=== PATIENT | male | born 1960 | race Caucasian/White ===

== ENCOUNTER 2024-07-05 13:08 | Outpatient (REF) | payer MEDICARE, MEDICAID, SELFPAY ==
[2024-07-05 18:20] LABS: Influenza A PCR NEGATIVE (Negative); Influenza B PCR NEGATIVE (Negative); Resp Syncy Virus RNA Qual PCR NEGATIVE (Negative); SARS COV2 PCR INHOUSE NEGATIVE (Negative)
[2024-07-09 18:43] LABS: C. Trachomatis RNA TMA, Throat NOT DETECTED; N. gonorrhoeae RNA TMA, Throat NOT DETECTED
== END 2024-07-05 13:09 | disposition home or self-care (01) ==
LOC: HO.LAB 13:08
PROVIDERS: Physician Assistant; PCP Internal Medicine
DX: J06.9 Acute upper respiratory infection, unspecified (principal); R09.89 Other specified symptoms and signs involving the circulatory and respiratory systems; R07.0 Pain in throat; Z20.2 Contact with and (suspected) exposure to infections with a predominantly sexual mode of transmission
CPT/HCPCS: 0241U; 87070; 87491; 87591; 87880; 99202

== ENCOUNTER 2024-07-05 13:08 | Outpatient (AMB) | payer MEDICARE, MEDICAID, SELFPAY ==
--- NOTE | 2024-07-05 13:11 | AM.OFFWIN_ITS ---
Intake Vital Signs 07/05/24 13:14 Weight 252 lb BP 116/64 Blood Pressure Location Rt brachial Position Sitting Pulse 81 Pulse Source Pulse Oximeter Temp 98.3 F Temp Source Oral Pulse Oximetry (%) 95 Oxygen Delivery Method Room Air Intake Visit Reasons: [employer] Sore throat, cold symptoms Intake Note: Patient here for sore throat and chest congestion that has been present for a couple of days but last night it worsened. Patient Tobacco Use Status: Former Tobacco user Allergies No Known Allergies Allergy (Unverified 07/05/24 13:16) HPI HPI Comments History of Present Illness Details History - The patient is a 64-year-old male pres enting with upper respiratory symptoms, notably a persistent cough producing green sputum for a week and a half. Not ably, the patient experiences worsening at night, severely impacting sleep due to increased coughing episodes. There is no fever, and the wheezing is described as originating from the chest. The patient denies a history of asthma or COPD. Despite using OTC cold formulations, the patient finds limited relief. A smoker history is noted, with cessation occurring decades ago. Orthopedic history includes bilateral shoulder and knee replacements and past ankle fracture, with methadone tapering currently ongoing. Additional symptoms include a toothache and white patches observed in the throat. Physical Exam General: Cooperative, healthy appearing, comfortable and no acute distress Orientation/consciousness: Patient oriented x3 Limitations: No limitations Head: Normal to inspection Ears: Hearing grossly normal bilaterally, external ears normal and TM's normal bilaterally Nose: Normal external nose present, Normal nares present and No nasal discharge present Face and sinus: Normal facial exam and Yes sinuses nontender Mouth: Normal oral and palatal mucosa present and moist mucous membranes Throat: Yes tonsils normal, Yes uvula midline. Posterior oropharynx erythema with a little white patch noted Eyes: Appearance normal, both eyes and all related structures Neck: Normal visual inspection Respiratory: Clear to auscultation bilaterally. Normal respiratory effort, able to speak in complete sentences, Actively coughing, no respiratory distress, not tachypneic, no tripod positioning and no use of accessory muscles Cardiovascular: Regular rate and rhythm. Normal S1 and S2 Skin: No rashes or lesions noted Neuro: Patient oriented x3 Extremities: Normal to inspection and Yes no clubbing, cyanosis or edema PFSH Social History Patient Tobacco Use Status: Former Tobacco user Review of Systems Const All systems reviewed & are unremarkable except as noted in HPI and below Physical Exam Vital Signs: Last Vital Signs Temp 98.3 F 07/05/24 13:14 Pulse 81 07/05/24 13:14 BP 116/64 07/05/24 13:14 Pulse Ox 95 07/05/24 13:14 Oxygen Delivery Method Room Air 07/05/24 13:14 Results AMB Rapid Strep AMB Rapid Strep Negative Last Edit by [email or web address] Faustin on 07/05/24 14:01 Assessment & Plan Assessment & Plan (1) URI, acute: Code(s): J06.9 - Acute upper respiratory infection, unspecified Plan: VSS, pt well appearing and PE remarkable for white patch in right posterior oropharynx. Rapid strep negative x2. Sent throat culture as well as gonorrhea and chlamydia culture. Sent Flu, Covid and RSV testing. Treatment currently focuses on symptomatic relief, with OTC medications, warm salt water rinses. Further treatment is pending test outcomes. If everything is negative and the white patch persists, patient was educated to follow up with an Oral surgeon for further evaluation. Patient was informed and verbally consented to the use of an ambient scribe for clinic note documentation during this visit Orders: Orders AMB Rapid Strep Screen Today Z13.9 - Encounter for screening, unspecified SARS-CoV2/FLU/RSV Today R09.89 - Other specified symptoms and signs involving the circulatory and respiratory systems Coding Level of Care Code New Pt Level 4 (24672) Diagnoses URI, acute J06.9
[2024-07-05 13:14] VITALS: BP 116/64; PULSE 81; TEMP 36.8; O2SAT 95
--- OUTSIDE RECORDS SUMMARY | 2024-07-05 15:59 | XMS_ITS | Data Portability ---
Author Organization [facility], [facility] Address [address] [place] [address] Care Team Providers Care Loans Consultant Name Role Phone PADMINI MOYA Primary Care Provider [phone] [facility] (LAILA MARIN) Orthopedic Surgeon Assessment Encounter Date Assessment Date Assessment LastModified by Organization Details LastModified Time 06/02/2023 06/02/2023 We completed your Medicare Wellness exam today. This was an opportunity to assess your overall well being including your ability to care for yourself, your mobility, memory, mental health, as well as your safety. With advancing age, it is important to assign someone in your life as your Health Care Proxy (HCP). This person should know what is important to you and what your wishes are for medical procedures if you cannot communicate your wishes yourself (severe illness, unconsciousness) . We discussed having a completed Health Care Proxy form today. In addition, today we started a conversation about your End of Life wishes. These conversations will continue over the years. Please consider reading the book, Being Mortal by Parrish Arevalo to help frame future conversations. We discussed the purpose of a MOLST form (Medical Orders for Life Sustaining Treatment) and completed this form if appropriate per your wishes. Vision and Hearing are senses that are critically important as we age. When impaired, they can contribute to memory loss, falls, and make it harder to drive, talk to family and friends, and engage in the world. Please get your vision checked yearly and your hearing checked when you start to notice hearing loss. We discussed approaches to lowering your risk of heart disease and stroke . Your blood pressure . Your cholesterol . We discussed cancer screening you may need as well as vaccines to prevent infections. Colon Cancer : Your risk of colon cancer is . Due for colorectal screening:.. if you are not planning to have a colonoscopy please screen with stool cards yearly. Prostate Cancer : PSA testing for ages 55-69 risks and benefits discussed . Aortic Aneurysm Screening : is indicated if you have a history of smoking and is due once at age 65. Influenza Vaccine : Flu shot yearly. Tetanus Vaccine : Every 10 years. Due: . The following vaccines are available from your pharmacy: Pneumonia Vaccine : PCV20: once after age 65. Shingles Vaccine : 2 shots after age 50. Covid Vaccine : Make sure you have received the most up to date covid vaccine. Your personal health goal for the year is: [email or web address] Not available 06/02/2023 09:04:48 06/23/2024 06/23/2024 We reviewed your chronic medical conditions and updated your plan for management. Please review instructions below. We have discussed your personal goals and discussed how to reach your goals. Please reach out to us via the Portal or phone if you have questions about your chronic conditions or if you or your caregivers require assistance in meeting your goals. Please visit our website [employer] for more patient resources. As part of your care plan, we will help coordinate your ongoing medical needs, arrange for durable medical equipment, renew prescriptions and necessary prior authorizations, facilitate getting referrals and collaborating with specialist, referrals for VNA services. [email or web address] Not available 06/22/2024 15:38:10 Plan of Treatment Reminders Order Date Submit Date Provider Last Modified By Organization Details Last Modified Time Details Appointments Wellness Visit 30 2024 08:45A Sean Moya MD Not available Not available Not available Lab drug screen, urine - Last dose of methadone 40mg was at 5am on 06/23/24La st dose of clonazepa m 1mg was at 7pm on 06/22/242024 025 [facility], [address] [place] [address], [place], [address], 06/23/2024 14:16:48 methadone , quantitat papito, urine - Last dose of methadone 40mg was at 5am on 06/23/24La st dose of clonazepa m 1mg was at 7pm on 06/22/242024 025 [facility], [address] [place] [address], [id number], 06/25/2024 13:17:29 benzodiaz epines, quantitat papito confirmat ion, urine - Last dose of methadone 40mg was at 5am on 06/23/24La st dose of clonazepa m 1mg was at 7pm on 06/22/242024 025 [facility], [address] [place] [address], [id number], 06/25/2024 13:17:28 BMP, serum or plasma 2023 024 [facility], [address] [place] [address], [id number], 06/21/2024 11:44:29 drug screen, urine - Last dose of methadone 40mg was at 3:30am on 11/24/23 st dose of clonazepa m 1mg was at 5:00am on 11/24/232023 024 [facility], [address] [place] [address], [id number], 11/24/2023 15:38:56 benzodiaz epines, quantitat papito confirmat ion, urine - Last dose of methadone 40mg was at 3:30am on 11/24/23La st dose of clonazepa m 1mg was at 5:00am on 11/24/232023 024 [facility], [address] [place] [address], [id number], 11/28/2023 09:57:35 drug screen, urine - Last dose of methadone 30mg was at 6:00am on 06/02/23Las t dose of clonazepa m 1mg was at 6:00am on 06/02/232023 024 [facility], [address] [place] [address], [id number], 06/02/2023 15:00:42 benzodiaz epines, quantitat papito confirmat ion, urine - Last dose of methadone 30mg was at 6:00am on 06/02/23Las t dose of clonazepa m 1mg was at 6:00am on 06/02/232023 024 [facility], [address] [place] [address], [id number], 06/05/2023 00:18:34 PSA, serum or plasma 2023 024 [facility], [address] [place] [address], [id number], 08/04/2023 16:08:52 lipid panel, serum 2023 024 [facility], [address] [place] [address], [id number], 08/04/2023 14:38:07 Referral sleep medicine referral - wants testing for sleep apnea 2023 024 [facility], [address], [facility] [address], [place], [address], 06/09/2023 12:36:34 Procedures None recorded. Surgeries None recorded. Imaging XR, sacrum + coccyx - pt fell a week ago , and has ongoing pain in buttock region 2023 024 [facility] ([facility]), [address], [place], [id number], 11/24/2023 11:00:22 Medication Orders methadone 10 mg tablet 2024 025 [id number], [address] [place], [place], [id number], 06/23/2024 09:01:03 clonazepa m 1 mg tablet 2024 025 [id number], [address] [place], [id number], 06/23/2024 09:01:01 clonazepa m 1 mg tablet [address] [facility][id number], [address] [place], [place], [id number], 02/23/2024 08:45:28 Wellbutri n SR 100 mg tablet, 12 hr sustained -release [address] [facility][id number], [address] [place], [place], [id number], 06/23/2024 08:48:38 Narcan 4 mg/actuat ion nasal spray 2023 025 [facility] #[id number], [address] [place], [place], [id number], 06/23/2024 08:48:55 methadone 10 mg tablet 2023 024 [facility] #60588, [address] [place], [place], [id number], 08/28/2023 13:55:15 clonazepa m 2 mg tablet 2023 024 [email or web address] #[id number], [address] [place], [place], [id number], 01/21/2024 17:49:43 Patient Targets Encounter Date Encounter Id Patient Goals Patient Target Last Modified By Organization Details Last Modified Time will do labs and return in 3m for follow up Not available 06/02/2023 10:25:01 He will return in 11/20 Not available 08/28/2023 14:02:37 No obvious Fx on X ray , await official readAdden- NL Xraywill cont on current pain medsFollow up in 3m Not available 11/24/2023 22:16:23 Will trial Wellbutrin SR 100 mg BIDCont PRN KlonopinPHA 06/21harry call in 1m Not available 02/23/2024 08:53:39 He will dec his methadone to 50 mg a dayHe will trial valium 1mg TID to assist with taper Not available 06/23/2024 09:02:03 Patient Instructions Encounter Date Encounter Id Patient Instructions Last Modified By Organization Details Last Modified Time 06/02/2023 [id number] Prostate Cancer Screening was discussed. The U.S. Preventive Services Task Force advises not to make a PSA test a part of the standard exam for men ages 55-69. Instead they recommend the uncertainties about the test be discussed and ordered only if a patient still wants it. Over their lifetimes as many as 50% or more of men will develop prostate cancer but only 2% of men will of prostate cancer. For men who chose to be screened for prostate cancer if 1000 men are screened with a psa test over a 15 year period there might be 1-2 deaths prevented however 235 men will have a biopsy with risk of infection, bleeding and Pain, 100 men will have their prostate removed by surgery or radiation treatments and 60-70 of those will suffer incontinence or impotence. There is also the risk of anesthesia or radiation complications. For men over 70 prostate cancer screening offered no benefit and risked pain, worry, expense and possibly shorter life expectancy. My Health To Do List Specific Analgesia Plan: {{Continue present regimen* Adjust dose of present analgesic Switch analgesics Add/A djust concomitant therapy Disconti nue/taper off opioid therapy}} Specific Goals for next visit {{increase exercise* start stress management impro ve sleeping start Yoga start TaiChi see therapist}}The patient is currently {{at* not at}} their goal of safe, stable use of narcotic pain medication to improve their functioning in life. Since the last visit there has been {{activity of concern no activity of concern*}}:{{# o veruse of meds request for an early refill abuse of staff noncomplia nce with UDS or pill count requests abnorma l UDS}} Patient today is {{at high risk at moderate risk at low risk*}} for {{abuse of meds* misuse of meds}}. Monitoring will include {{pill counts repeat UDS* closer follow-up with shorter scripts}}. Patients current goals of {{better sleep more activity* return to work return to school improved ADL's improved self care improved function in roles}} were discussed with patient, unlikelihood of 100% reduction in pain made clear. Patient has read narcotics contract and understands the properties of narcotic medication. [email or web address] Not available 06/02/2023 09:06:08 08/28/2023 [id number] My Health To Do List Specific Analgesia Plan: {{Continue present regimen* Adjust dose of present analgesic Switch analgesics Add/A djust concomitant therapy Disconti nue/taper off opioid therapy}} Specific Goals for next visit {{increase exercise* start stress management impro ve sleeping start Yoga start TaiChi see therapist}}The patient is currently {{at* not at}} their goal of safe, stable use of narcotic pain medication to improve their functioning in life. Since the last visit there has been {{activity of concern no activity of concern*}}:{{# o veruse of meds request for an early refill abuse of staff noncomplia nce with UDS or pill count requests abnorma l UDS}} Patient today is {{at high risk at moderate risk at low risk*}} for {{abuse of meds* misuse of meds}}. Monitoring will include {{pill counts repeat UDS* closer follow-up with shorter scripts}}. Patients current goals of {{better sleep more activity* return to work return to school improved ADL's improved self care improved function in roles}} were discussed with patient, unlikelihood of 100% reduction in pain made clear. Patient has read narcotics contract and understands the properties of narcotic medication. [email or web address] Not available 08/28/2023 12:02:13 11/24/2023 [id number] My Health To Do List Specific Analgesia Plan: {{Continue present regimen* Adjust dose of present analgesic Switch analgesics Add/A djust concomitant therapy Disconti nue/taper off opioid therapy}} Specific Goals for next visit {{increase exercise* start stress management impro ve sleeping start Yoga start TaiChi see therapist}}The patient is currently {{at* not at}} their goal of safe, stable use of narcotic pain medication to improve their functioning in life. Since the last visit there has been {{activity of concern no activity of concern*}}:{{# o veruse of meds request for an early refill abuse of staff noncomplia nce with UDS or pill count requests abnorma l UDS}} Patient today is {{at high risk at moderate risk at low risk*}} for {{abuse of meds* misuse of meds}}. Monitoring will include {{pill counts repeat UDS* closer follow-up with shorter scripts}}. Patients current goals of {{better sleep more activity* return to work return to school improved ADL's improved self care improved function in roles}} were discussed with patient, unlikelihood of 100% reduction in pain made clear. Patient has read narcotics contract and understands the properties of narcotic medication. [email or web address] Not available 11/23/2023 17:22:32 02/23/2024 [id number] My Health To Do List Specific Analgesia Plan: {{Continue present regimen* Adjust dose of present analgesic Switch analgesics Add/A djust concomitant therapy Disconti nue/taper off opioid therapy}} Specific Goals for next visit {{increase exercise* start stress management impro ve sleeping start Yoga start TaiChi see therapist}}The patient is currently {{at* not at}} their goal of safe, stable use of narcotic pain medication to improve their functioning in life. Since the last visit there has been {{activity of concern no activity of concern*}}:{{# o veruse of meds request for an early refill abuse of staff noncomplia nce with UDS or pill count requests abnorma l UDS}} Patient today is {{at high risk at moderate risk at low risk*}} for {{abuse of meds* misuse of meds}}. Monitoring will include {{pill counts repeat UDS* closer follow-up with shorter scripts}}. Patients current goals of {{better sleep more activity* return to work return to school improved ADL's improved self care improved function in roles}} were discussed with patient, unlikelihood of 100% reduction in pain made clear. Patient has read narcotics contract and understands the properties of narcotic medication. [email or web address] Not available 02/22/2024 15:32:07 06/23/2024 [id number] My Health To Do List Specific Analgesia Plan: {{Continue present regimen* Adjust dose of present analgesic Switch analgesics Add/A djust concomitant therapy Disconti nue/taper off opioid therapy}} Specific Goals for next visit {{increase exercise* start stress management impro ve sleeping start Yoga start TaiChi see therapist}}The patient is currently {{at* not at}} their goal of safe, stable use of narcotic pain medication to improve their functioning in life. Since the last visit there has been {{activity of concern no activity of concern*}}:{{# o veruse of meds request for an early refill abuse of staff noncomplia nce with UDS or pill count requests abnorma l UDS}} Patient today is {{at high risk at moderate risk at low risk*}} for {{abuse of meds* misuse of meds}}. Monitoring will include {{pill counts repeat UDS* closer follow-up with shorter scripts}}. Patients current goals of {{better sleep more activity* return to work return to school improved ADL's improved self care improved function in roles}} were discussed with patient, unlikelihood of 100% reduction in pain made clear. Patient has read narcotics contract and understands the properties of narcotic medication. [email or web address] Not available 06/22/2024 15:38:46 Reason for Referral Sleep Medicine Referral for Sleep apnea wants testing for sleep apnea Referring Physician: Padmini Moya, Family Medicine, Encounter Date: 06/02/2023 Results Created Date Observation Date Name Description Value Unit Range Abnormal Flag Note LastModifiedBy Organization Detail LastModifiedTime 06/02/19 24 06/02/2023 DRUG SCREE N-8, URINE , WITH CONFI RMATI ON GC/MS amphetamine NEG. negati ve Not Available [address], [address], 06/02/2023 15:00:42 06/02/19 24 06/02/2023 DRUG SCREE N-8, URINE , WITH CONFI RMATI ON GC/MS barbiturates NEG. negati ve Not Available [address], [address], 06/02/2023 15:00:42 06/02/19 24 06/02/2023 DRUG SCREE N-8, URINE , WITH CONFI RMATI ON GC/MS benzodiazepi ne POS. negati ve Not Available [address], [address], 06/02/2023 15:00:42 06/02/19 24 06/02/2023 DRUG SCREE N-8, URINE , WITH CONFI RMATI ON GC/MS cocaine NEG. negati ve Not Available [address], [address], 06/02/2023 15:00:42 06/02/19 24 06/02/2023 DRUG SCREE N-8, URINE , WITH CONFI RMATI ON GC/MS opiates NEG. negati ve Not Available [address], [address], 06/02/2023 15:00:42 06/02/19 24 06/02/2023 DRUG SCREE N-8, URINE , WITH CONFI RMATI ON GC/MS methadone POS. negati ve Not Available [address], [address], 06/02/2023 15:00:42 06/02/19 24 06/02/2023 DRUG SCREE N-8, URINE , WITH CONFI RMATI ON GC/MS fentanyl NEG. negati ve Syva EMIT II Limit s of Detec tion (cutt -off value s) Eagle Expan d: Amphe tamin es: 1000 ng/ml Opiat es: 300 ng/ml Viridiana tuate s: 200 ng/ml Oxyco done 100 ng/ml Benzo diaze pines : 200 ng/ml Metha done 300 ng/ml Cocai ne: 300 ng/ml Fenta nyl 1 ng/ml Not Available [address], [address], 06/02/2023 15:00:42 06/02/19 24 06/02/2023 DRUG SCREE N-8, URINE , WITH CONFI RMATI ON GC/MS oxycodone NEG. negati ve Not Available [address], [address], 06/02/2023 15:00:42 06/02/19 24 06/05/2023 DRUG TOX MONIT ORING BENZO DIAZE PINES , QN, U alphahydroxy alprazolam 25 NG/mL <25 high See Note 1 Not Available [facility] [address], [place], [address], 06/05/2023 00:18:34 06/02/19 24 06/05/2023 DRUG TOX MONIT ORING BENZO DIAZE PINES , QN, U alphahydroxy midazolam NEGATI VE NG/mL <50 See Note 1 Not Available [facility] [address], [place], [address], 06/05/2023 00:18:34 06/02/19 24 06/05/2023 DRUG TOX MONIT ORING BENZO DIAZE PINES , QN, U alphahydroxy triazolam NEGATI VE NG/mL <50 See Note 1 Not Available [facility] [address], [place], [address], 06/05/2023 00:18:34 06/02/19 24 06/05/2023 DRUG TOX MONIT ORING BENZO DIAZE PINES , QN, U aminoclonaze carito 953 NG/mL <25 high See Note 1 Not Available [facility] [address], [place], [address], 06/05/2023 00:18:34 06/02/19 24 06/05/2023 DRUG TOX MONIT ORING BENZO DIAZE PINES , QN, U hydroxyethyl flurazepam NEGATI VE NG/mL <50 See Note 1 Not Available [facility] [address], [place], [address], 06/05/2023 00:18:34 06/02/19 24 06/05/2023 DRUG TOX MONIT ORING BENZO DIAZE PINES , QN, U lorazepam NEGATI VE NG/mL <50 See Note 1 Not Available [facility] [address], [place], [address], 06/05/2023 00:18:34 06/02/19 24 06/05/2023 DRUG TOX MONIT ORING BENZO DIAZE PINES , QN, U nordiazepam NEGATI VE NG/mL <50 See Note 1 Not Available [facility] [address], [place], [address], 06/05/2023 00:18:34 06/02/19 24 06/05/2023 DRUG TOX MONIT ORING BENZO DIAZE PINES , QN, U oxazepam NEGATI VE NG/mL <50 See Note 1 Not Available [facility] [address], [place], [address], 06/05/2023 00:18:34 06/02/19 24 06/05/2023 DRUG TOX MONIT ORING BENZO DIAZE PINES , QN, U temazepam NEGATI VE NG/mL <50 See Note 1 Not Available [facility] [address], [place], [address], 06/05/2023 00:18:34 06/02/19 24 06/05/2023 DRUG TOX MONIT ORING BENZO DIAZE PINES , QN, U Unknown Analyte See Note 2 Not Available [facility] [address], [place], [address], 06/05/2023 00:18:34 06/02/19 24 06/05/2023 DRUG TOX MONIT ORING METHA DONE METAB , QN, U EDDP >[address]803 NG/mL <100 high See Note 1 Not Available [facility] [address], [place], [address], 06/05/2023 00:18:35 06/02/19 24 06/05/2023 DRUG TOX MONIT ORING METHA DONE METAB , QN, U methadone 6676 NG/mL <100 high See Note 1 Not Available [facility] [address], [place], [address], 06/05/2023 00:18:35 06/02/19 24 06/05/2023 DRUG TOX MONIT ORING METHA DONE METAB , QN, U Unknown Analyte See Note 2 Note 1 This test was devel ivonneed and its brittaney tical perfo rmanc e jessica cteri stics have been deter mined by [facility]. It has not been clear ed or appro umang by the FDA. This assay has been valid ated pursu ant to the CLIA regul ation s and is used for clini kaelyn purpo ses. Note 2 This drug testi ng is for medic al treat ment only. Brittaney sis was perfo rmed as non-f orens ic testi ng and these resul ts shoul d be used only by healt hcare provi ders to rende r diagn osis or treat ment, or to monit or progr ess of medic al condi tions . For eunicejakub [place] with inter preti ng these drug resul ts, pleas e conta ct a [facility] Toxic ology Speci alist : [phone] ( [phone] ), M-F, 8am-6 pm EST. Not Available [facility] [address], [address], 06/05/2023 00:18:35 08/04/19 24 08/04/2023 BASIC METAB OLIC PANEL glucose 98 mg/dL 70-100 Not Available [address], [address], 08/04/2023 14:38:05 08/04/19 24 08/04/2023 BASIC METAB OLIC PANEL BUN 19 mg/dL 7-18 high Not Available [address], [address], 08/04/2023 14:38:05 08/04/19 24 08/04/2023 BASIC METAB OLIC PANEL creatinine 0.7 mg/dL 0.8-1. 3 low Not Available [address], [address], 08/04/2023 14:38:05 08/04/19 24 08/04/2023 BASIC METAB OLIC PANEL B/C 27.1 ratio Not Available [address], [address], 08/04/2023 14:38:05 08/04/19 24 08/04/2023 BASIC METAB OLIC PANEL GFR >=60ML /MIN mL/mi n normal >=60m L/min - Iza l or midly reduc ed <60mL /min- Decre ased kidne y funct ion <15mL /min - Kidne y failu re [facility] calcu lates estim ated Glome rular Filtr ation Rate (eGFR ) using the Chron ic Kidne y Disea se Epide miolo gy Colla borat ion (CKD- EPI) Equat ion (Raji martinez et. al 2020) as recom juan d by the Natio nal Kidne y Found ation . eGFR is based on age, serum creat inine , and sex. CKD-E PI does not calcu late eGFR by race, does not apply to child iftikhar (age <18 years ), and shoul d not be used in pregn samson. Not Available [address], [address], 08/04/2023 14:38:05 08/04/19 24 08/04/2023 BASIC METAB OLIC PANEL sodium 137 mmol/ L 136-14 5 Not Available [address], [address], 08/04/2023 14:38:05 08/04/19 24 08/04/2023 BASIC METAB OLIC PANEL potassium 4.1 mmol/ L 3.5-5. 1 Not Available [address], [address], 08/04/2023 14:38:05 08/04/19 24 08/04/2023 BASIC METAB OLIC PANEL chloride 95 mmol/ L 96-107 low CWP=C onsis tent with previ ous. Not Available [address], [address], 08/04/2023 14:38:05 08/04/19 24 08/04/2023 BASIC METAB OLIC PANEL anion gap 12.2 5.0-15 .0 Not Available [address], [address], 08/04/2023 14:38:05 08/04/19 24 08/04/2023 BASIC METAB OLIC PANEL CO2 30 mmol/ L 21-32 Not Available [address], [address], 08/04/2023 14:38:05 08/04/19 24 08/04/2023 BASIC METAB OLIC PANEL calcium 9.1 mg/dL 8.5-10 .3 Not Available [address], [address], 08/04/2023 14:38:05 08/04/19 24 08/04/2023 LIPID PANEL cholesterol 165 mg/dL <200 mg/dl Con able 200-2 39 mg/dl Borde rline High >240 mg/dl High Not Available [address], [address], 08/04/2023 14:38:08/04/19 24 08/04/2023 LIPID PANEL triglyceride s 47 mg/dL <150 mg/dL Iza l 150-1 99 mg/dL Borde rline High 200-4 99 mg/dL High >500 mg/dL Very High Not Available [address], [address], 08/04/2023 14:38:07 08/04/19 24 08/04/2023 LIPID PANEL direct HDL 64 mg/dL <40 mg/dl - Major Risk for CHD >60 mg/dl - Negat papito Risk for CHD Not Available [address], [address], 08/04/2023 14:38:07 08/04/19 24 08/04/2023 LDL - CALCU LATED LDL - calculated 91.6 RISK CATEG ORY LDL GOAL _ CHD or CHD Risk Equiv alent s <100 mg/dl (10-y ear risk >20%) 2+ Risk Facto rs <130 mg/dl (10-y ear risk <= 20%) 0-1 Risk Facto r? <160 mg/dl ? Almos t all peopl e with 0-1 risk facto r have a 10 year risk <10%, thus 10 year risk asses ment in peopl e with 0-1 risk facto r is not cindy samson. Not Available [address], [address], 08/04/2023 14:38:08 08/04/19 24 08/04/2023 PSA PSA 2.49 NG/mL 0.00-4 .00 Not Available [address], [address], 08/04/2023 16:08:52 11/24/19 24 11/24/2023 DRUG SCREE N-8, URINE , WITH CONFI RMATI ON GC/MS amphetamine NEG. negati ve Not Available [address], [address], 11/24/2023 15:38:56 11/24/19 24 11/24/2023 DRUG SCREE N-8, URINE , WITH CONFI RMATI ON GC/MS barbiturates NEG. negati ve Not Available [address], [address], 11/24/2023 15:38:56 11/24/19 24 11/24/2023 DRUG SCREE N-8, URINE , WITH CONFI RMATI ON GC/MS benzodiazepi ne NEG. negati ve Not Available [address], [address], 11/24/2023 15:38:56 11/24/19 24 11/24/2023 DRUG SCREE N-8, URINE , WITH CONFI RMATI ON GC/MS cocaine NEG. negati ve Not Available [address], [address], 11/24/2023 15:38:56 11/24/19 24 11/24/2023 DRUG SCREE N-8, URINE , WITH CONFI RMATI ON GC/MS opiates NEG. negati ve Not Available [address], [address], 11/24/2023 15:38:56 11/24/19 24 11/24/2023 DRUG SCREE N-8, URINE , WITH CONFI RMATI ON GC/MS methadone POS. negati ve GCMS= Sampl e [facility] for confi rmati on by GC/MS . Not Available [address], [address], 11/24/2023 15:38:56 11/24/19 24 11/24/2023 DRUG SCREE N-8, URINE , WITH CONFI RMATI ON GC/MS fentanyl NEG. negati ve Syva EMIT II Limit s of Detec tion (cutt -off value s) [facility] Expan d: Amphe tamin es: 1000 ng/ml Opiat es: 300 ng/ml Viridiana tuate s: 200 ng/ml Oxyco done 100 ng/ml Benzo diaze pines : 200 ng/ml Metha done 300 ng/ml Cocai ne: 300 ng/ml Fenta nyl 1 ng/ml Not Available [address], [address], 11/24/2023 15:38:56 11/24/19 24 11/24/2023 DRUG SCREE N-8, URINE , WITH CONFI RMATI ON GC/MS oxycodone NEG. negati ve Not Available [address], [place], [address], 11/24/2023 15:38:56 11/24/19 24 11/28/2023 DRUG TOX MONIT ORING BENZO DIAZE PINES , QN, U alphahydroxy alprazolam NEGATI VE NG/mL <25 See Note 1 Not Available [facility] [address], [address], 11/28/2023 09:57:35 11/24/19 24 11/28/2023 DRUG TOX MONIT ORING BENZO DIAZE PINES , QN, U alphahydroxy midazolam NEGATI VE NG/mL <50 See Note 1 Not Available [facility] [address], [place], [address], 11/28/2023 09:57:35 11/24/19 24 11/28/2023 DRUG TOX MONIT ORING BENZO DIAZE PINES , QN, U alphahydroxy triazolam NEGATI VE NG/mL <50 See Note 1 Not Available [facility] [address], [place], [address], 11/28/2023 09:57:35 11/24/19 24 11/28/2023 DRUG TOX MONIT ORING BENZO DIAZE PINES , QN, U aminoclonaze carito 1045 NG/mL <25 high See Note 1 Not Available [facility] [address], [address], 11/28/2023 09:57:35 11/24/19 24 11/28/2023 DRUG TOX MONIT ORING BENZO DIAZE PINES , QN, U hydroxyethyl flurazepam NEGATI VE NG/mL <50 See Note 1 Not Available [facility] [place] [facility] [address], [place], [address], 11/28/2023 09:57:35 11/24/19 24 11/28/2023 DRUG TOX MONIT ORING BENZO DIAZE PINES , QN, U lorazepam NEGATI VE NG/mL <50 See Note 1 Not Available [facility] [place] [facility] [address], [place], [address], 11/28/2023 09:57:35 11/24/19 24 11/28/2023 DRUG TOX MONIT ORING BENZO DIAZE PINES , QN, U nordiazepam NEGATI VE NG/mL <50 See Note 1 Not Available [facility] [place] [facility] [address], [place], [address], 11/28/2023 09:57:35 11/24/19 24 11/28/2023 DRUG TOX MONIT ORING BENZO DIAZE PINES , QN, U oxazepam NEGATI VE NG/mL <50 See Note 1 Not Available [facility] [place] [facility] [address], [place], [address], 11/28/2023 09:57:35 11/24/19 24 11/28/2023 DRUG TOX MONIT ORING BENZO DIAZE PINES , QN, U temazepam NEGATI VE NG/mL <50 See Note 1 Not Available [facility] [place] [facility] [address], [place], [address], 11/28/2023 09:57:35 11/24/19 24 11/28/2023 DRUG TOX MONIT ORING BENZO DIAZE PINES , QN, U Unknown Analyte See Note 2 Not Available [facility] [place] [facility] [address], [place], [address], 11/28/2023 09:57:35 11/24/19 24 11/28/2023 DRUG TOX MONIT ORING METHA DONE METAB , QN, U EDDP 9665 NG/mL <100 high See Note 1 Not Available [facility] [place] [facility] [address], [address], 11/28/2023 09:57:36 11/24/19 24 11/28/2023 DRUG TOX MONIT ORING METHA DONE METAB , QN, U methadone 2962 NG/mL <100 high See Note 1 Not Available [facility] [place] [facility] [address], [place], [address], 11/28/2023 09:57:36 11/24/19 24 11/28/2023 DRUG TOX MONIT ORING METHA DONE METAB , QN, U Unknown Analyte See Note 2 Note 1 This test was devel oped and its brittaney tical perfo rmanc e jessica cteri stics have been deter mined by [facility]. It has not been clear ed or appro umang by the FDA. This assay has been valid ated pursu ant to the CLIA regul ation s and is used for clini kaelyn purpo ses. Note 2 This drug testi ng is for medic al treat ment only. Brittaney sis was perfo rmed as non-f orens ic testi ng and these resul ts shoul d be used only by healt hcare provi ders to rende r diagn osis or treat ment, or to monit or progr ess of medic al condi tions . For eunicejakub camar[place] with inter preti ng these drug resul ts, pleas e conta ct a [facility] Toxic ology Speci alist : [phone] X TOX ( [phone] ), M-F, 8am-6 pm EST. Not Available [facility] [place] [facility] [address], [place], [address], 11/28/2023 09:57:36 06/21/19 25 06/21/2024 BASIC METAB OLIC PANEL glucose 92 mg/dL 70-100 Not Available [address], [address], 06/21/2024 11:44:29 06/21/1906/21/2024 BASIC METAB OLIC PANEL BUN 23 mg/dL 7-18 high Not Available [address], [address], 06/21/2024 11:44:29 06/21/1906/21/2024 BASIC METAB OLIC PANEL creatinine 0.9 mg/dL 0.8-1. 3 Not Available [address], [address], 06/21/2024 11:44:29 06/21/1906/21/2024 BASIC METAB OLIC PANEL B/C 25.6 ratio Not Available [address], [address], 06/21/2024 11:44:29 06/21/1906/21/2024 BASIC METAB OLIC PANEL GFR >=60ML /MIN mL/mi n normal >=60m L/min - Iza l or midly reduc ed <60mL /min- Decre ased kidne y funct ion <15mL /min - Kidne y failu re [facility] calcu lates estim ated Glome rular Filtr ation Rate (eGFR ) using the Chron ic Kidne y Disea se Epide miolo gy Colla borat ion (CKD- EPI) Equat ion (Raji r et. al 2020) as recom juan d by the Natio nal Kidne y Found ation . eGFR is based on age, serum creat inine , and sex. CKD-E PI does not calcu late eGFR by race, does not apply to child iftikhar (age <18 years ), and shoul d not be used in pregn samson. Not Available [address], [address], 06/21/2024 11:44:29 06/21/1906/21/2024 BASIC METAB OLIC PANEL sodium 138 mmol/ L 136-14 5 Not Available [address], [address], 06/21/2024 11:44:29 06/21/1906/21/2024 BASIC METAB OLIC PANEL potassium 4.4 mmol/ L 3.5-5. 1 Not Available [address], [address], 06/21/2024 11:44:29 06/21/1906/21/2024 BASIC METAB OLIC PANEL chloride 99 mmol/ L 96-107 Not Available [address], [address], 06/21/2024 11:44:29 06/21/1906/21/2024 BASIC METAB OLIC PANEL anion gap 6.9 5.0-15 .0 Not Available [address], [address], 06/21/2024 11:44:29 06/21/1906/21/2024 BASIC METAB OLIC PANEL CO2 32 mmol/ L 21-32 Not Available [address], [address], 06/21/2024 11:44:29 06/21/1906/21/2024 BASIC METAB OLIC PANEL calcium 9.1 mg/dL 8.5-10 .3 Not Available [address], [address], 06/21/2024 11:44:29 06/21/1906/21/2024 LIPID PANEL cholesterol 163 mg/dL <200 mg/dl Con able 200-2 39 mg/dl Borde rline High >240 mg/dl High Not Available [address], [address], 06/21/2024 11:44:31 06/21/1906/21/2024 LIPID PANEL triglyceride s 35 mg/dL <150 mg/dL Iza l 150-1 99 mg/dL Borde rline High 200-4 99 mg/dL High >500 mg/dL Very High Not Available [address], [address], 06/21/2024 11:44:31 06/21/1906/21/2024 LIPID PANEL direct HDL 77 mg/dL <40 mg/dl - Major Risk for CHD >60 mg/dl - Negat papito Risk for CHD Not Available [address], [address], 06/21/2024 11:44:31 06/21/1906/21/2024 LDL - CALCU LATED LDL - calculated 79 RISK CATEG ORY LDL GOAL _ CHD or CHD Risk Equiv alent s <100 mg/dl (10-y ear risk >20%) 2+ Risk Facto rs <130 mg/dl (10-y ear risk <= 20%) 0-1 Risk Facto r? <160 mg/dl ? Almos t all peopl e with 0-1 risk facto r have a 10 year risk <10%, thus 10 year risk asses ment in peopl e with 0-1 risk facto r is not neces mali. Not Available [address], [address], 06/21/2024 11:44:32 06/24/1906/23/2024 DRUG SCREE N-8, URINE , WITH CONFI RMATI ON GC/MS amphetamine NEG. negati ve Not Available [address], [address], 06/23/2024 14:16:48 06/24/1906/23/2024 DRUG SCREE N-8, URINE , WITH CONFI RMATI ON GC/MS barbiturates NEG. negati ve Not Available [address], [address], 06/23/2024 14:16:48 06/24/1906/2306/23/2024 DRUG SCREE N-8, URINE , WITH CONFI RMATI ON GC/MS benzodiazepi ne NEG. negati ve Not Available [address], [address], 06/23/2024 14:16:48 06/24/19 25 06/23/2024 DRUG SCREE N-8, URINE , WITH CONFI RMATI ON GC/MS cocaine NEG. negati ve Not Available [address], [address], 06/23/2024 14:16:48 06/24/19 25 06/23/2024 DRUG SCREE N-8, URINE , WITH CONFI RMATI ON GC/MS opiates NEG. negati ve Not Available [address], [address], 06/23/2024 14:16:48 06/24/19 25 06/23/2024 DRUG SCREE N-8, URINE , WITH CONFI RMATI ON GC/MS methadone POS. negati ve Not Available [address], [address], 06/23/2024 14:16:48 06/24/19 25 06/23/2024 DRUG SCREE N-8, URINE , WITH CONFI RMATI ON GC/MS fentanyl NEG. negati ve Syva EMIT II Limit s of Detec tion (cutt -off value s) [facility] Expan d: Amphe tamin es: 1000 ng/ml Opiat es: 300 ng/ml Viridiana tuate s: 200 ng/ml Oxyco done 100 ng/ml Benzo diaze pines : 200 ng/ml Metha done 300 ng/ml Cocai ne: 300 ng/ml Fenta nyl 1 ng/ml Not Available [address], [address], 06/23/2024 14:16:48 06/24/19 25 06/23/2024 DRUG SCREE N-8, URINE , WITH CONFI RMATI ON GC/MS oxycodone NEG. negati ve Not Available [address], [place], [address], 06/23/2024 14:16:48 06/24/19 25 06/25/2024 DRUG TOX MONIT ORING BENZO DIAZE PINES , QN, U alphahydroxy alprazolam 28 NG/mL <25 high See Note 1 Not Available [facility] [place] [facility] [address], [place], [address], 06/25/2024 13:17:28 06/24/19 25 06/25/2024 DRUG TOX MONIT ORING BENZO DIAZE PINES , QN, U alphahydroxy midazolam NEGATI VE NG/mL <50 See Note 1 Not Available [facility] [place] [facility] [address], [place], [address], 06/25/2024 13:17:28 06/24/19 25 06/25/2024 DRUG TOX MONIT ORING BENZO DIAZE PINES , QN, U alphahydroxy triazolam NEGATI VE NG/mL <50 See Note 1 Not Available [facility] [place] [facility] [address], [place], [address], 06/25/2024 13:17:28 06/24/19 25 06/25/2024 DRUG TOX MONIT ORING BENZO DIAZE PINES , QN, U aminoclonaze carito 661 NG/mL <25 high See Note 1 Not Available [facility] [place] [facility] [address], [place], [address], 06/25/2024 13:17:28 06/24/19 25 06/25/2024 DRUG TOX MONIT ORING BENZO DIAZE PINES , QN, U hydroxyethyl flurazepam NEGATI VE NG/mL <50 See Note 1 Not Available [facility] [place] [facility] [address], [place], [address], 06/25/2024 13:17:28 06/24/19 25 06/25/2024 DRUG TOX MONIT ORING BENZO DIAZE PINES , QN, U lorazepam NEGATI VE NG/mL <50 See Note 1 Not Available [facility] [place] [facility] [address], [place], [address], 06/25/2024 13:17:28 06/24/19 25 06/25/2024 DRUG TOX MONIT ORING BENZO DIAZE PINES , QN, U nordiazepam NEGATI VE NG/mL <50 See Note 1 Not Available [facility] [place] [facility] [address], [place], [address], 06/25/2024 13:17:28 06/24/19 25 06/25/2024 DRUG TOX MONIT ORING BENZO DIAZE PINES , QN, U oxazepam NEGATI VE NG/mL <50 See Note 1 Not Available [facility] [place] [facility] [address], [place], [address], 06/25/2024 13:17:28 06/24/19 25 06/25/2024 DRUG TOX MONIT ORING BENZO DIAZE PINES , QN, U temazepam NEGATI VE NG/mL <50 See Note 1 Not Available [facility] [place] [facility] [address], [place], [address], 06/25/2024 13:17:28 06/24/19 25 06/25/2024 DRUG TOX MONIT ORING BENZO DIAZE PINES , QN, U Unknown Analyte See Note 2 Not Available [facility] [place] [facility] [address], [place], [address], 06/25/2024 13:17:28 06/24/19 25 06/25/2024 DRUG TOX MONIT ORING METHA DONE METAB , QN, U EDDP >01846 NG/mL <100 high See Note 1 Not Available [facility] [place] [facility] [address], [place], [address], 06/25/2024 13:17:29 06/24/19 25 06/25/2024 DRUG TOX MONIT ORING METHA DONE METAB , QN, U methadone 3432 NG/mL <100 high See Note 1 Not Available [facility] [place] [facility] [address] [place], [address], 06/25/2024 13:17:29 06/24/19 25 06/25/2024 DRUG TOX MONIT ORING METHA DONE METAB , QN, U Unknown Analyte See Note 2 Note 1 This test was devel oped and its brittaney tical perfo rmanc e jessica cteri stics have been deter mined by [facility]. It has not been clear ed or appro umang by the FDA. This assay has been valid ated pursu ant to the CLIA regul ation s and is used for clini kaelyn purpo ses. Note 2 This drug testi ng is for medic al treat ment only. Brittaney sis was perfo rmed as non-f orens ic testi ng and these resul ts shoul d be used only by healt hcare provi ders to rende r diagn osis or treat ment, or to monit or progr ess of medic al condi tions . For eunice tance with inter preti ng these drug resul ts, pleas e conta ct a [facility] Toxic ology Speci alist : [phone] ( [phone] ), M-F, 8am-6 pm EST. Not Available [facility] [place] [facility] [address] [place], [address], 06/25/2024 13:17:29 11/24/19 24 11/24/2023 XR, sacru m + coccy x CLINIC AL HISTOR Y: Pain. TECHNI QUE: Multip le views of the sacrum , coccyx and sacroi liac joints are obtain ed. COMPAR ANUJ: None. FINDIN GS: No fractu re of the sacrum or coccyx is eviden t. The sacroi liac joints are unrema rkable . No other bony or soft tissue abnorm alitie s are seen. IMPRES BRONSON: No acute bone abnorm ality. Albert reyna Physic rosemarie: Thomas Cheema [facility] (Imaging) [address] , [place], [address], 12/02/2023 15:06:37 Result Notes None recorded. 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 Active 2022 Not Available [facility] 3 12:10:55 Mixed hyperlipid emia 986392461 Completed 200601/21/2017 Padmini Moya MD [address] [place] [address], [phone] , [facility] 7 16:48:11 Obesity 036374699 Completed 05/20/2014 Padmini Moya MD [address] [place] [address], [phone] , [facility] 5 10:08:22 Congenital valgus deformity of foot 70273038 Completed 03/15/2009 Not Available [facility] 3 03:13:58 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 05/20/2014 Padmini Moya MD [address] [place] [address], [phone] , [facility] 5 10:08:22 Knee pain Completed 200603/15/2009 Not Available [facility] 3 03:13:58 Chronic pain 24833893 Active Not Available [facility] 3 12:10:55 Chronic pain 46799504 Completed 01/07/2010 Not Available [facility] 3 03:13:58 Chronic pain 19353908 Completed 200703/15/2009 Not Available [facility] 3 03:13:58 Shoulder pain 83925049 Completed 200603/15/2009 Not Available [facility] 3 03:13:58 Opioid dependence 46785145 Completed 01/07/2010 Padmini Moya MD [address] [place] [address], [phone] , [facility] 6 09:57:44 Opioid dependence 05567785 Completed 200803/15/2009 Padmini Moya MD [address] [place] [address], [phone] , [facility] 6 09:57:44 Tenosynovi tis of foot 874964124 Completed 03/15/2009 Not Available [facility] 3 03:13:58 Anemia 478455010 Completed 200703/15/2009 Not Available [facility] 3 03:13:58 Drug dependence 921464340 Completed 03/15/2009 Not Available [facility] 3 03:13:58 Benign essential hypertensi on 8766153 Active 2006 Not Available [facility] 3 12:10:55 Low back pain 057183488 Active 2006 Not Available [facility] 3 12:10:55 Insomnia 214813840 Active 2007 Not Available [facility] 3 12:10:55 Notes:Some problems listed i n Documents: #[id number], #[id number], #[id number], #[id number] could not be added to this patient's chart. Please review these documents and add these problems to the patient's chart manually as needed. Problem Notes None recorded. Procedures Surgical History Date Name Laterality Status Provider Name and Address Organization Details Recorded Time 06/02/19 24 Medicare Wellness Visit completed BOB Montgomery [facility] 06/02/2023 09:04:49 06/02/19 24 Cardiovascular disease risk reduction counseling completed Padmini Moya MD [address] [place] [address], [phone], [facility] 06/02/2023 10:25:18 06/02/19 24 Advanced Care Planning completed Aline martinez, [facility] [place] 06/02/2023 09:07:20 05/26/19 23 Knee Replacement completed Padmini Moya MD [address] [place], [phone], [facility] 06/03/2022 11:38:17 05/13/19 23 Medicare Wellness Visit completed Aline martinez, [facility] [place] 05/12/2022 16:21:54 10/30/19 22 Smoking cessation counseling completed Aline martinez, [facility] [place] 10/29/2021 08:35:00 08/21/19 22 Smoking cessation counseling completed Aline martinez, [facility] [place] 08/19/2021 15:54:42 07/12/19 22 Smoking cessation counseling completed Aline martinez, [facility] [place] 07/09/2021 11:35:58 05/29/19 22 Shoulder joint surgery completed Padmini Moya MD [address] [place], [phone], [facility] 06/03/2022 11:37:41 03/19/20 21 Medicare Wellness Visit completed Hever Chappell MA [facility] 03/19/2021 08:48:12 03/19/20 21 Alcohol use screening completed Hever Chappell MA [facility] 03/19/2021 08:48:12 03/19/20 21 Cardiovascular disease risk reduction counseling completed Hever Chappell MA [facility] 03/19/2021 08:48:12 02/27/20 21 arthroplasty completed Ashley Mccracken LPN [facility] 03/01/2021 11:21:02 12/01/19 21 Smoking cessation counseling completed Aline martinez [facility] [place] 11/30/2020 08:42:28 08/31/19 21 Smoking cessation counseling completed Aline martinez [facility] [place] 08/30/2020 11:18:54 05/24/19 21 Smoking cessation counseling completed Aline martinez [facility] [place] 05/24/2020 09:10:53 02/16/20 20 prevention-cardiov ascular risk reduction counseling completed Aline martinez [facility] [place] 02/16/2020 08:17:37 02/16/20 20 prevention-annual alcohol misuse screening completed Aline martinez [facility] [place] 02/16/2020 08:17:37 12/22/19 19 Medicare Wellness Visit completed Tereza Tan [facility] 12/21/2018 10:19:38 09/18/19 18 Medicare Wellness Visit completed Samantha Cabrera [facility] 09/17/2017 13:31:40 07/23/19 17 Medicare Wellness Visit completed Teresa Toure [facility] 07/22/2016 08:52:50 05/19/19 15 Medicare Wellness Visit completed Vane Sanchez [facility] 05/19/2014 09:17:11 05/19/19 15 Medicare Annual Wellness Visit completed Vane Sanchez [facility] 05/19/2014 09:28:42 05/19/19 15 Medicare Risk for Falls Screen completed Vane Sanchez [facility] 05/19/2014 09:28:42 05/10/19 13 Medicare Wellness Visit completed Shagufta Ramos [employer] [facility] 05/10/2012 10:33:17 12/15/19 12 Shoulder (Left) Injection completed Padmini Moya MD [address] [place] [address], [phone], [facility] 12/17/2011 10:10:52 05/02/19 12 Medicare Wellness Visit completed Shagufta Al [facility] 05/02/2011 08:07:33 Imaging Results Imaging Date Name Status LastModified by Organiz ation Details LastModified Time 11/24/2023 XR[facility] sacrum [facility] [address], [place], [address], 12/02/2023 15:06:37 Procedure Notes None recorded. Medical Equipment None Reported. Allergies No known drug allergies Medications Name Sig Start Date Stop Date Status Note LastModified by Organization Details LastModified Time chlorthal idone 25 mg tabs 11/13 completed Not Available Not Available Not Available methadone hcl 10 mg tabs 11/13 completed Not Available Not Available Not Available lisinopri l 40 mg tabs 11/13 completed Not Available Not Available Not Available celecoxib 200 mg capsule TAKE 1 CAPSULE BY MOUTH EVERY DAY. TO BE STARTED AFTER SURGERY 06/01 completed not taking 06/02/23 [facility] Not Available Not Available Not Available fluoxetin e 40 mg capsule TAKE 1 CAPSULE BY MOUTH EVERY DAY 11/23 completed does not take 11/24/23 [facility] Not Available Not Available Not Available cyclobenz aprine 10 mg tablet active Not Available Not Available No t Available amoxicill in 500 mg capsule TAKE 4 CAPSULES BY MOUTH 1 HOUR BEFORE DENTAL APPOINTM ENT active Not Available Not Available No t Available acetamino phen 325 mg tablet TAKE 3 TABLETS BY MOUTH EVERY 8 HOURS active Not Available Not Available No t Available atorvasta tin 20 mg tablet TAKE 1 TABLET BY MOUTH EVERY DAY active Not Available Not Available No t Available Norvasc 10 mg tablet Take 1 tablet every day by oral route. 2008 active Not Available Not Available Not Avai lable aspirin 325 mg tablet 07/11 completed does not take 07/11/21 [facility] Not Available Not Available Not Available methadone 10 mg tablet TAKE 3 TABLETS BY MOUTH IN THE MORNING THEN TAKE 2 TABLETS BY MOUTH IN THE EVENING active Not Available Not Available No t Available meloxicam 15 mg tablet TAKE 1 TABLET BY MOUTH EVERY DAY 02/25 completed does not take 10/29/21 [facility] Not Available Not Available Not Available clonazepa m 0.5 mg tablet TAKE 1 TABLET BY MOUTH EVERY DAY 02/25 completed Not Available Not Available Not Available clonazepa m 1 mg tablet TAKE 1 TABLET BY MOUTH THREE TIMES DAILY active Not Available Not Available No t Available chlorthal idone 25 mg tablet TAKE 1 TABLET BY MOUTH EVERY DAY 05/20 completed unsure of dose 05/13/22 [facility] Not Available Not Available Not Available chlorthal idone 50 mg tablet TAKE 1 TABLET BY MOUTH EVERY DAY active Not Available Not Available No t Available acetamino phen 500 mg tablet TAKE 2 TABLETS BY MOUTH EVERY 8 HOURS AROUND THE CLOCK FOR PAIN 05/20 completed Not Available Not Available Not Available bupropion HCl SR 100 mg tablet,12 hr sustained -release TAKE 1 TABLET BY MOUTH TWICE DAILY 06/23 completed Patients no longer taking 06/23/24 due to bp drop Not Available Not Available Not Available hydromorp tawnya 2 mg tablet 1-2 tablet by mouth q 6 hours for mod to severe pain 06/03 completed per 05/21/22 hosp med dc lists/p 05/20 LTK Not Available Not Available Not Available aspirin 325 mg tablet,de layed release TAKE 1 TABLET BY MOUTH TWICE DAILY FOR 30 DAYS ONLY. 08/14 completed per 05/21/22 hosp med dc list Not Available Not Available Not Available cephalexi n 500 mg capsule 01/21 completed Not Available Not Available Not Available pantopraz ole 40 mg tablet,de layed release TAKE 1 TABLET BY MOUTH EVERY DAY. 06/01 completed per hosp med dc list Not Available Not Available Not Available clonazepa m 2 mg tablet TAKE 1/2 TABLET BY MOUTH TWICE DAILY 01/20 completed DOSE CHANGED BY DS Not Available Not Available Not Available docusate sodium 100 mg capsule TAKE 1 CAPSULE BY MOUTH TWICE DAILY. TO BE STARTED AFTER SURGERY 06/01 completed Not Available Not Available Not Available gabapenti n 300 mg capsule TAKE 2 CAPSULES BY MOUTH THREE TIMES DAILY active Not Available Not Available No t Available lisinopri l 20 mg-hydroc hlorothia zide 25 mg tablet TAKE 1 TABLET BY MOUTH TWICE DAILY active takes once or twice a day Not Available Not Available Not Available Viagra 100 mg tablet Take 1 tablet every day by oral route. 2013 active Not Available Not Available Not Avai lable lisinopri l 40 mg tablet TAKE 1 TABLET BY MOUTH EVERY DAY 2024 active Not Available Not Available Not Avai lable fluoxetin e 20 mg capsule TK 1 C PO QD 07/27 completed Not Available Not Available Not Available naproxen 500 mg tablet active Not Available Not Available Not Available Levitra 20 mg tablet Take 1 tablet every day by oral route. 2010 active Not Available Not Available Not Avai lable Cialis 20 mg tablet Take 1 tablet every day by oral route. 2012 active Not Available Not Available Not Avai lable Lyrica 75 mg capsule TAKE ONE CAPSULE BY MOUTH TWICE A DAY 2014 active Not Available Not Available Not Avai lable senna 187 mg tablets qd at hs prn for constipa tion 06/01 completed per 3 hosp med dc list Not Available Not Available Not Available oxycodone 10 mg tablet TAKE 1 TABLET BY MOUTH EVERY 4 HOURS 04/22 completed does not take 04/22/21 KRB Not Available Not Available Not Available GaviLyte- G 236 gram-22.7 4 gram-6.74 gram-5.86 gram oral solution 03/09 completed Not Available Not Available Not Available Fluzone 8445-4572 45 mcg (15 mcg x 3)/0.5 mL intramusc ular suspensio n TO BE ADMINIST ERED BY PHARMACI ST FOR IMMUNIZA TION active Not Available Not Available No t Available naloxone 4 mg/actuat ion nasal spray GENTLY INSERT THE TIP INTO ONE NOSTRIL AND PRESS THE PLUNGER FIRMLY; IF NO RESPONSE MAY REPEAT EVERY 2 TO 3 MINUTES IN ALTERNAT E NOSTRIL 11/11 completed Not Available Not Available Not Available Vitals Date Recorded Body height Body mass index (BMI) Body weight Heart rate Systolic blood pressure Diastolic blood pressure Provider Name and Address Organization Details Last Updated DateTime 4 182.88 cm 35.5 kg/m2 629805. 2 g 72 /min 114 mm[Hg] 60 mm[Hg] Aline alfredo, [facility], [place] 4 09:38:43 Date Recorded Body height Body mass index (BMI) Body weight Heart rate Systolic blood pressure Diastolic blood pressure Provider Name and Address Organization Details Last Updated DateTime 4 182.88 cm 34.3 kg/m2 215398. 87 g 80 /min 136 mm[Hg] 62 mm[Hg] Tereza Tan [facility] 4 13:32:59 Date Recorded Body height Body mass index (BMI) Body weight Heart rate Systolic blood pressure Diastolic blood pressure Provider Name and Address Organization Details Last Updated DateTime 4 182.88 cm 34.9 kg/m2 847266. 24 g 80 /min 126 mm[Hg] 74 mm[Hg] Aline Lowrya user, [facility], [place] 4 08:19:06 Date Recorded Body height Body mass index (BMI) Body weight Heart rate Systolic blood pressure Diastolic blood pressure Provider Name and Address Organization Details Last Updated DateTime 4 182.88 cm 35.2 kg/m2 555042. 22 g 76 /min 118 mm[Hg] 68 mm[Hg] Aline Betyoungenha user, [facility], [place] 4 08:20:46 Date Recorded Body height Body mass index (BMI) Body weight Oxygen saturation Oxygen saturation in Arterial blood by Pulse oximetry Heart rate Systolic blood pressure Diastolic blood pressure Systolic blood pressure Diastolic blood pressure Provider Name and Address Organization Details Last Updated DateTime 5 182.88 cm 34.2 kg/m2 467981. 33 g 97 % 97 % 66 /min 138 mm[Hg] 80 mm[Hg] 130 mm[Hg] 75 mm[Hg] [facility] 08:[facility] Social History Question Answer Notes LastModified by Organizat ion Details LastModified Time Tobacco Smoking Status Former [facility]oker cigars quit- [facility] 08:23:28 Do You Have An Advance Directive? Yes Given Today [email or web address] Information not available 02/14/2009 What Is Your Level Of Alcohol Consumption? None Information not available 03/19/2021 Do You Wear A Helmet When Biking? No [email or web address] Information not available 08/29/2014 What Is Your Level Of Caffeine Consumption? Moderate Coffee Daily 2-3 Cups [email or web address] Information not available 12/21/2018 How Much Tobacco Do You Chew? None Information not available 06/02/2023 What Type Of Diet Are You Following? REGULAR [email or web address] Information not available 08/29/2014 Which Illicit Or Recreational Drugs Have You Used? MJ Helps With Pain On Occ Information not available 10/29/2021 Do You Or Have You Ever Used E-cigarettes Or Vape? Never Used Electronic Cigarettes Information not available 06/09/2019 Education 12 Information not available 11/30/2020 What Is The Highest Grade Or Level Of School You Have Completed Or The Highest Degree You Have Received? 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 No Information not available 03/19/2021 When Did You Quit Smoking? 16+yearssinc [email or web address] te Information not available 06/02/2023 How Many Days In The Past Year Have You Had A Heavy Drinking Consumption (4+ Female, 5+ Male)? 0 Information not available 05/10/2012 Are There Any Guns Present In Your Home? Yes Locked Safe Information not available 08/29/2014 Do You Use Insect Repellent Routinely? No Information not available 05/13/2022 Live Alone Or With Others? With Others Mother, And His Son Zachariah [email or web address] Information not available 05/02/2011 CSRP - Narcotics Yes Methadone 10 Mg Dx- M54.5 Low Back Pain Information not available 02/13/2011 CSRP Contract Signed And Discussed Yes 10/29/2021 ( DS ) Information not available 02/13/2011 Patient Has Health Care Proxy Signed And In Chart Yes [email or web address] Information not available 12/24/2018 MOLST Form Signed And In Chart 06/02/2023 Information not available 06/05/2023 CCM Consent Discussion 05/13/2022 Information not available 05/15/2022 CSRP - Benzodiazepines Yes CLONAZEPAM 1 MG [email or web address] Information not available 01/21/2024 Marital Status Information not available 02/13/2011 Mosquito Repellent Used Routinely Yes [email or web address] Information not available 08/29/2014 What Was The Date Of Your Most Recent Tobacco Screening? 06/23/2024 [email or web address] Information not available 06/23/2024 How Many Children Do You Have? 3 Mom Downstairs , Zachariah- - B 1986 - [place] With His GF Has A Child : Jyothi - 06/08/18, , Not Together With The Babys Mom, Ernesto Gets To See Her On Weekends Lives In [place] Jessica - Patricia 1990 - Hiked [employer] - Summer 2021 Photography Lives With Her Mom In [facility] Christa- Patricia 1996 , [place] Has A BF Information not available 02/23/2024 What Is Your Relationship Status? Information not available 03/19/2021 Do You Use Your Seat Belt Or Car Seat Routinely? No Information not available 05/13/2022 Seat Belts Used Routinely No [email or web address] Information not available 08/29/2014 Smoke Alarm In Home Yes Information not available 08/29/2014 Do You Have Smoke And Carbon Monoxide Detectors In Your Home? Yes Information not available 03/19/2021 At What Age Did You Start Smoking Tobacco? 13 Information not available 06/02/2023 Are You Passively Exposed To Smoke? No Information not available 03/19/2021 Do You Or Have You Ever Used Smokeless Tobacco? Former Smokeless Tobacco User -quit 05/13/22 Information not available 06/02/2023 How Much Tobacco Do You Smoke? 1 PPD Information not available 06/02/2023 General Stress Level Medium Information not available 02/16/2020 Do You Use Sunscreen Routinely? No [email or web address] Information not available 08/29/2014 How Many Years Have You Smoked Tobacco? 20 Information not available 06/02/2023 Do You Or Have You Ever Used Any Other Forms Of Tobacco Or Nicotine? Yes Information not available 10/29/2021 Sex: Unknown Functional Status Question Answer Note LastModified by Organization D etails LastModified Time What is your exercise level? Moderate Information not available 03/19/2021 Mental Status None recorded. Family History Relationship Description Onset Age of this Age Resolved Age Notes LastModified by Organization Details LastModified Time Father Alcoholism 70 Not availabl e 03/12/2015 08:53:45 Brother Alcoholism 40 Isaac , + 1 yr , EtOH Not available 02/16/2020 10:33:33 Mother Problem 872022, lives with Alireza dao, she is getfran g weaker Not available 11/12/2022 16:39:14 Medical History Condition Response Erectile Dysfunction Y Osteoarthritis Y Hyperlipidemia Y Hypertension Y Immunizations Vaccine Type Date Status Note Provider Nam rajan and Address Organization Details Recorded Time Influenza, split virus, trivalent, preservative 3 completed Not Available [facility] 04/16/2019 02:29:18 Tdap 3 completed Not Available [facility] 04/16/2019 02:16:04 Influenza, split virus, quadrivalent, PF 5 completed Not Available [facility] 04/16/2019 02:39:34 Influenza, split virus, quadrivalent, PF 6 completed Not Available [facility] 04/16/2019 02:26:36 Influenza, split virus, quadrivalent, PF 7 completed Not Available [facility] 04/16/2019 02:29:51 Influenza, split virus, quadrivalent, PF 8 completed Not Available [facility] 04/16/2019 02:27:13 Influenza, split virus, quadrivalent, PF 9 completed Not Available [facility] 04/16/2019 02:30:26 Influenza, split virus, quadrivalent, PF 0 completed Padmini Moya MD [address] [place] [address], [phone], [facility] 01/31/2020 09:34:14 Influenza, split virus, quadrivalent, PF 1 completed Aline Lindsey [facility], [facility] 03/19/2021 09:43:07 Influenza, split virus, quadrivalent, PF 3 completed Padmini Moya MD [address] [place] [address], [phone], [facility] 05/15/2022 06:29:51 Influenza, high-dose, trivalent, PF 4 completed Padmini Moya MD [address] [place] [address], [phone], [facility] 02/23/2024 08:45:28 COVID-19, mRNA, LNP-S, PF, 30 mcg/0.3 mL dose 1 completed Alinekecia Harttgenhauser, RMA null, [facility] 08/19/2021 15:53:03 COVID-19, mRNA, LNP-S, PF, 30 mcg/0.3 mL dose 1 completed Aline Bettgenhauser, RMA null, [facility] 08/19/2021 15:53:26 COVID-19, mRNA, LNP-S, PF, 30 mcg/0.3 mL dose 2 completed Aline Bettgenhauser, RMA null, [facility] 08/19/2021 15:53:48 Influenza, MDCK, quadrivalent, PF 3 completed Aline Bettgenhauser, RMA null, [facility] 01/19/2023 16:24:08 Influenza, split virus, quadrivalent, preservative 4 completed Aline Bettgenhauser, RMA null, [facility] 06/02/2023 09:25:31 Influenza, split virus, quadrivalent, preservative 4 completed Aline Bettgenhauser, RMA null, [facility] 06/02/2023 09:25:31 zoster recombinant 4 completed Aline Harttgenhauser, RMA null, [facility] 02/23/2024 08:18:06 COVID-19, mRNA, LNP-S, PF, 100 mcg/0.5mL dose or 50 mcg/0.25mL dose 1 completed Aline Harttgenhmadhur, RMA null, [facility] 02/23/2024 08:18:06 SARS-COV-2 (COVID-19) vaccine, UNSPECIFIED 1 completed Aline Harttgenhmaria c RMA null, [facility] 02/23/2024 08:18:06 pneumococcal polysaccharide PPV23 4 completed Aline Lindsey RMA null, [facility] 02/23/2024 08:18:06 Influenza, split virus, trivalent, preservative 3 completed Aline Lindsey RMA null, [facility] 02/23/2024 08:18:06 Td (adult), 5 Lf tetanus toxoid, preservative free, adsorbed 2 completed Aline Lindsey RMA null, [facility] 02/23/2024 08:18:06 Td (adult), 2 Lf tetanus toxoid, preservative free, adsorbed 3 completed Aline Lindsey RMA null, [facility] 02/23/2024 08:18:06 zoster recombinant 4 completed Aline Lindsey RMA null, [facility] 06/23/2024 08:24:57 Past Encounters Encounter ID Performer Location Encounter Start Date Encounter Closed Date Diagnosis/Indication Diagnosis SNOMED-CT Code Diagnosis ICD10 Code Diagnosis Note [id number] [facility], OFFICE [address] [place] [address] 04/27/2006 09:39:07 04/27/2006 10:29:00 [id number] [facility], OFFICE [address] [place] [address] 07/27/2006 10:16:13 07/27/2006 11:33:28 [id number] [facility] - [facility] [address] [place] [address] 10/07/2006 08:07:39 10/07/2006 08:08:46 [id number] [facility], OFFICE [address] [place] [address] 12/29/2006 08:14:02 12/29/2006 17:01:01 [id number] [facility], OFFICE [address] [facility] [place] [address] 04/06/2007 08:35:47 04/19/2008 02:02:29 [id number] [facility], OFFICE [address] [place] [address] 05/25/2007 08:31:35 04/19/2008 02:02:29 [id number] LAB - [facility] [address] [facility] [place] [address] 06/24/2007 10:00:06 06/24/2007 10:00:18 [id number] LAB - [facility] [address] [facility] [place] [address] 09/08/2007 09:38:06 09/08/2007 09:38:12 [id number] FP, C, OFFICE [address] [facility] [address] 10/05/2007 07:49:17 04/19/2008 02:02:29 [id number] , C, OFFICE [address] [facility] [address] 01/04/2008 07:53:13 04/19/2008 02:02:29 [id number] , C, OFFICE [address] [facility] [place] [address] 07/28/2008 08:43:42 08/04/2008 08:13:15 [id number] LAB - C [address] [place] [address] 06/23/2008 08:25:08 06/23/2008 08:33:44 [id number] LAB - C [address] [place] [address] 07/28/2008 09:46:50 07/28/2008 09:54:27 [id number] LAB - C [address] [place] [address] 12/08/2008 09:39:27 12/08/2008 09:39:42 [id number] , C, OFFICE [address] [facility] [place] [address] 02/14/2009 08:11:35 02/20/2009 08:19:10 [id number] Podiatry, C [address] [facility] [address] 02/27/2009 08:38:28 03/16/2009 11:17:53 [id number] , C, OFFICE [address] [place] [address] 03/15/2009 08:20:16 03/20/2009 11:37:53 [id number] MD FANTA Mariano, C, OFFICE [address] [facility] [place] [address] 06/14/2009 11:05:27 06/18/2009 15:20:24 [id number] , C, OFFICE [address] [facility] [place] [address] 09/18/2009 09:24:20 09/21/2009 10:26:43 [id number] , C, OFFICE [address] [facility] [place] [address] 01/07/2010 10:11:05 01/10/2010 08:30:40 [id number] [facility] C, OFFICE [address] [facility] [place] [address] 04/16/2010 07:59:47 04/18/2010 15:42:15 [id number] [facility] C, OFFICE [address] [facility] [place] [address] 07/10/2010 09:28:28 07/15/2010 15:05:53 [id number] MD FANTA Mariano, C, OFFICE [address] [facility] [place] [address] 10/17/2010 09:12:48 10/17/2010 12:02:36 [id number] FANTA C, OFFICE [address] [facility] [place] [address] 10/21/2010 08:33:27 10/21/2010 09:06:40 [id number] MD FANTA Mariano, C, OFFICE [address] [facility] [place] [address] 11/22/2010 09:10:26 11/22/2010 17:13:59 [id number] [facility] C, OFFICE [address] [facility] [place] [address] 01/16/2011 08:22:34 01/16/2011 09:17:20 [id number] [facility] C, OFFICE [address] [facility] [place] [address] 05/02/2011 07:38:39 05/02/2011 08:55:54 [id number] , [facility], [facility] [address] [facility] [place] [address] 09/15/2011 18:13:35 09/16/2011 06:53:07 [id number] , [facility], OFFICE [address] [facility] [place] [address] 10/31/2011 08:13:03 10/31/2011 08:59:02 [id number] Padmini Moya MD , [facility], OFFICE [address] [facility] [place] [address] 12/15/2011 13:23:52 12/15/2011 14:52:39 [id number] Jorje Palma MD Radiology , [facility] [address] [facility] [place] [address] 12/17/2011 14:56:24 12/19/2011 10:23:31 [id number] Lucio Lockett MD Radiology , [facility] [address] [facility] [place] [address] 01/01/2012 08:08:59 01/05/2012 13:35:08 [id number] Padmini Moya MD , [facility], OFFICE [address] [facility] [place] [address] 02/03/2012 08:23:59 02/03/2012 09:08:36 [id number] Padmini Moya MD , [facility], OFFICE [address] [facility] [place] [address] 05/10/2012 08:32:04 05/10/2012 15:03:02 [id number] Padmini Moya MD , [facility], OFFICE [address] [facility] [place] [address] 08/03/2012 08:25:58 08/03/2012 09:46:31 [id number] Padmini Moya MD , [facility], OFFICE [address] [facility] [place] [address] 08/24/2012 09:27:11 08/24/2012 17:05:18 [id number] , [facility], OFFICE [address] [facility] [place] [address] 11/05/2012 08:28:34 11/05/2012 09:04:41 [id number] Shanell Gaona i , [facility], OFFICE [address] [place] [address] 02/01/2013 07:53:56 02/01/2013 09:59:25 Chronic pain [id number] Rashida Ramirezelisha duncan , [facility], OFFICE [address] [place] [address] 05/17/2013 08:02:19 05/17/2013 09:31:21 Chronic pain 41263933 Adult heal th examination [id number] see Risk Assessment and Lifestyle Change Counseling section above Counseling [id number] Long-term drug therapy 292175400 Benign ess ential hypertension 5297968 Mixed hyperlipidemia 707882189 elevated LDL [id number] Padmini Moya MD , [facility], OFFICE [address] [place] [address] 08/18/2013 08:18:40 08/18/2013 09:10:32 Chronic pain 80687520 Benign ess ential hypertension 1161179 at goal Low back pain 522019822 cont on current meds History of male erectile disorder 539636175 [id number] Brooke Welch , [facility], OFFICE [address] [place] [address] 11/21/2013 08:23:05 11/21/2013 10:14:25 Chronic pain 87471286 Benign ess ential hypertension 1799047 Mixed hyperlipidemia 934174242 he does have a high HDL and a high LDL, but overall <20% [id number] Padmini Moya MD , [facility], OFFICE [address] [place] [address] 02/20/2014 08:18:10 02/20/2014 12:22:08 Chronic pain 89175856 Benign ess ential hypertension 3016186 [id number] , [facility], OFFICE [address] [place] [address] 6 05/19/2014 08:09:51 05/19/2014 12:30:18 Adult health examination [id number] see Risk Assessment and Lifestyle Change Counseling section above Long-term drug therapy 401297001 Benign ess ential hypertension 6126261 at goal Low back pain 593087868 cont on current meds Mixed hyperlipidemia 270500365 he does have a high HDL and a high LDL, but overall <20% Chronic pain 58211020 [id number] Padmini Moya MD , [facility], OFFICE [address] [place] [address] 08/29/2014 10:13:44 08/29/2014 11:28:00 Chronic pain 32938091 Benign ess ential hypertension 5031951 at goal Long-term drug therapy 366349137 History of male erectile disorder 501125460 prn meds Nocturia 112402878 will stop diuretic [id number] , [facility], OFFICE [address] [place] [address] 6 12/14/2014 08:21:18 12/14/2014 09:27:30 Lifestyle 956033316 Chronic pain 93878113 Benign ess ential hypertension 7232363 at goal Mixed hyperlipidemia 913858579 he does have a high HDL and a high LDL, but overall 17% 10 yr risk , if he was to go on statins and lower his LDL to 120 and lower his BP to 120 his risk would be 10%, he is not interested in statins at this time [id number] Padmini Moya MD , [facility], OFFICE [address] [place] [address] 03/12/2015 08:28:28 03/12/2015 09:32:35 Benign essential hypertension 7754495 I10 Blood pressure at goal Chronic pain 55811460 R5 2 Mixed hyperlipidemia 267 940401 E78.2 Cholestero l is not at goal-- LDL > 160 Continue to work on diet and exercise as discussed Active or passive immunization 099061063 Z23 [id number] Shagufta Ramos LPN , [facility], OFFICE [address] [place] [address] 07/19/2015 08:19:01 07/19/2015 10:19:11 Long-term drug therapy 173481234 Z79.899 Benign ess ential hypertension 1018644 I10 Blood pressure at goal Hyperglycemia 38460659 R 73.9 Arthritis 5464884 M19.90 [id number] Padmini Moya MD , [facility], OFFICE [address] [place] [address] 10/05/2015 09:25:21 10/05/2015 10:28:12 Benign essential hypertension 6771801 I10 well controlled Chronic pain 84425700 R5 2 stable [id number] Padmini Moya MD , [facility], OFFICE [address] [place] [address] 6 01/04/2016 09:09:38 01/04/2016 10:00:07 Benign essential hypertension 1468622 I10 Blood pressure at goal Mixed hyperlipidemia 267 262407 E78.2 Cholestero l is not at goal-- LDL 142 Continue to work on diet and exercise as discussed Active or passive immunization 170418056 Z23 Opioid dependence 706844 00 F11.20 cont on current meds Low back pain 890495801 M54.5 cont on current meds Long-term drug therapy 103986389 Z79.632 [id number] Padmini Moya MD , [facility], OFFICE [address] [place] [address] 6 04/11/2016 08:23:27 04/11/2016 09:00:47 Long-term drug therapy 045599403 Z79.899 Idiopathic peripheral neuropathy 70742088 G60.9 Opioid dependence 021765 00 F11.20 cont on current meds Benign ess ential hypertension 5339240 I10 at goal Insomnia 966121441 G47.0 0 [id number] MD FANTA Mariano, [facility], OFFICE [address] [place] [address] 6 07/22/2016 08:35:05 07/22/2016 09:42:54 Adult health examination 532971139 Z00.00 see Risk Assessment and Lifestyle Change Counseling section above Counseling 800579462 Z71 .9 Neuropathy 182790531 G62 .9 Benign ess ential hypertension 4849268 I10 at goal Mixed hyperlipidemia 267 094171 E78.2 Cholestero l is not at goal-- LDL 155 Continue to work on diet and exercise as discussed Opioid dependence 486224 00 F11.20 cont on current meds [id number] Padmini Moya MD , [facility], OFFICE [address] [place] [address] 6 10/14/2016 07:33:31 10/14/2016 08:16:53 Long-term drug therapy 326089120 Z79.899 Low back pain 465440576 M54.5 cont on current meds Mixed hyperlipidemia 267 430011 E78.2 Cholestero l is not at goal-- LDL 155 Continue to work on diet and exercise as discussed Benign ess ential hypertension 8496032 I10 at goal [id number] Padmini Moya MD , [facility], OFFICE [address] [place] [address] 6 01/20/2017 07:05:21 01/20/2017 10:01:03 Chronic pain 76476137 G89.29 Active or passive immunization 924282085 Z23 Benign ess ential hypertension 7052610 I10 at goal Low back pain 032235735 M54.5 cont on current meds Opioid dependence 450894 00 F11.20 cont on current meds [id number] Padmini Moya MD , [facility], OFFICE [address] [place] [address] 04/21/2017 07:27:41 04/21/2017 08:21:13 Chronic pain 95266521 R52 Opioid dependence 795477 00 F11.20 cont on current meds Long-term drug therapy 797051971 Z79.899 Benign ess ential hypertension 1207223 I10 at goal Hyperlipidemia 77715865 E78.5 LDL is elevated we will work on diet. [id number] Padmini Moya MD , [facility], OFFICE [address] [place] [address] 6 09/17/2017 13:29:38 09/17/2017 14:50:08 Adult health examination 673296900 Z00.00 see risk assesment and counseling section Depression screening 171 411142 Z13.89 depression screening tool administer ed, entered into emr, scored and discussed, time greater than 7.5 minutes Chronic pain 79373834 R5 2 Opioid dependence 939912 00 F11.20 cont on current meds Benign ess ential hypertension 5060033 I10 at goal Mixed hyperlipidemia 267 219295 E78.2 Cholestero l is at goal Continue to work on diet and exercise as discussed Long-term drug therapy 164979052 Z79.038 [id number] MD FANTA Mariano, [facility] OFFICE [address] [place] [address] [phone] 6 12/22/2017 08:38:22 12/22/2017 09:36:30 Chronic pain 45194004 R52 Opioid dependence 105890 00 F11.20 cont on current meds Mixed hyperlipidemia 267 056308 E78.2 Cholestero l elevated LDL 174 .Continue to work on diet and exercise as discussed Benign ess ential hypertension 7490083 I10 Blood pressure at goal Active or passive immunization 689516279 Z23 [id number] Padmini Moya MD , [facility] [address] [place] [address] [phone] 6 03/09/2018 07:30:43 03/09/2018 08:20:58 Benign essential hypertension 8121974 I10 Blood pressure NOT at goal. 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 [id number] Padmnii Moya MD , [facility] [address] [place] [address] [phone] 6 12/21/2018 10:13:45 12/21/2018 16:44:03 Adult health examination 290700713 Z00.00 see risk assesment and counseling section Depression screening 171 398850 Z13.89 depression screening tool administer ed, entered into emr, scored and discussed, time greater than 7.5 minutes Chronic pain 22049483 R5 2 Opioid dependence 125615 00 F11.20 cont on current meds Mixed hyperlipidemia 267 889248 E78.2 Cholestero l elevated LDL 174 .Continue to work on diet and exercise as discussed Active or passive immunization 027594582 Z23 Benign ess ential hypertension 0602004 I10 Blood pressure at goal. [id number] Padmini Moya MD , [facility] [address] [place] [address] [phone] 6 03/01/2019 07:34:06 03/01/2019 10:19:02 Chronic pain 16488303 R52 Opioid dependence 191559 00 F11.20 cont on current meds Mixed hyperlipidemia 267 751994 E78.2 Cholestero l elevated LDL 174 .CV risk 10%Continu e to work on diet and exercise as discussed Foot pain 30971598 M79.6 73 Benign ess ential hypertension 2914856 I10 Blood pressure at goal. [id number] Padmini Moya MD , [facility] [address] [place] [address] 25032-524 6 06/09/2019 08:17:46 06/09/2019 09:02:57 Chronic pain 51175428 R52 Opioid dependence 180194 00 F11.20 cont on current meds Essential hypertension 65890773 I10 Mixed hyperlipidemia 267 401310 E78.2 Cholestero l elevated LDL 174 .CV risk 10%Continu e to work on diet and exercise as discussed Long-term drug therapy 999731907 Z79.899 Anxiety 21804173 F41.9 [id number] Padmini Moya MD , [facility] [address] [place] [address] 58854-621 6 07/26/2019 11:45:49 07/28/2019 15:51:59 Chronic pain 14378442 R52 Opioid dependence 019714 00 F11.20 cont on current meds Major depr essive disorder 968141483 F32.9 [id number] Padmini Moya MD , [facility] [address] [place] [address] [phone] 6 08/11/2019 10:37:30 08/12/2019 11:13:21 Opioid dependence 98426553 F11.20 cont on current meds Benign ess ential hypertension 2967303 I10 Blood pressure at goal. Major depr essive disorder 177550606 F32.9 doing well on fluoxetine [id number] Padmini Moya MD , [facility] [address] [place] [address] [phone] 6 11/14/2019 10:35:11 11/15/2019 08:24:38 Chronic pain 25841401 R52 Opioid dependence 971163 00 F11.20 cont on current meds Essential hypertension 97013535 I10 Mixed hyperlipidemia 267 818643 E78.2 Cholestero l is not at goal, CV risk 11%, not interested in meds Continue to work on diet and exercise as discussed [id number] Padmini Moya MD , [facility] [address] [place] [address] [phone] 6 01/27/2020 14:27:16 02/02/2020 17:14:48 Long-term drug therapy 018891169 Z79.899 Chronic pain 39183035 R5 2 Opioid dependence 510263 00 F11.20 cont on current meds Active or passive immunization 822578831 Z23 [id number] Padmini Moya MD , [facility] [address] [place] [address] 33657-834 6 02/16/2020 09:14:09 02/17/2020 12:26:59 Adult health examination 019798961 Z00.00 see risk assessment and counseling section Screening for alcohol abuse 527918487 Z13.39 Essential hypertension 73310282 I10 Mixed hyperlipidemia 267 810949 E78.2 Cholestero l is not at goal, does not want meds Continue to work on diet and exercise as discussed Chronic pain 29068679 R5 2 Opioid dependence 595903 00 F11.20 cont on current meds Tobacco de pendence syndrome 59915444 F17.200 continues with chewing tobacco [id number] Padmini Moya MD , [facility] [address] [place] [address] [phone] 6 05/24/2020 09:19:39 05/25/2020 10:31:39 Chronic pain 71526377 R52 Opioid dependence 206201 00 F11.20 cont on current meds Low back pain 502975847 M54.5 cont on current meds [id number] Padmini Moya MD , [facility] [address] [place] [address] 70305-521 6 08/30/2020 10:48:35 08/30/2020 12:18:25 Chronic pain 76786899 R52 Long-term current use of opiate analgesic drug 4278089461 87801 Z79.891 on going methadone Essential hypertension 97215469 I10 usu well controlled Mixed hyperlipidemia 267 501186 E78.2 will add lipitor Cholestero l is not at goal Continue to work on diet and exercise as discussed Tobacco user 059886602 Z 72.0 still chewing tobacco [id number] Padmini Moya MD , [facility] [address] [place] [address] 83268-480 6 11/30/2020 08:19:39 11/30/2020 14:50:38 Chronic pain 26326099 R52 Long-term current use of opiate analgesic drug 3020478032 65395 Z79.891 on going methadone Long-term drug therapy 294369451 Z79.899 Essential hypertension 96400606 I10 usu well controlled Mixed hyperlipidemia 267 382898 E78.2 he is on lipitor Cholestero l is at goal Continue to work on diet and exercise as discussed Cigarette smoker 2328357 7 F17.210 Tobacco user 465878285 Z 72.0 still chewing tobacco [id number] LINDA Lott , [facility] [address] [place] [address] 23074-327 6 02/12/2021 08:03:25 02/13/2021 11:31:11 Pre-surgery evaluation 329901182 Z01.818 Revised cardiac risk index: 3.9%Based on history, EKG and cardiac risk calculator , pt does not seem to be at increased risk of adverse outcomes for surgery at this time.Will get labwork today [id number] Padmini Moya MD , [facility] [address] [place] [address] [phone] 6 03/19/2021 08:32:11 03/19/2021 09:41:47 Adult health examination 661771207 Z00.00 see risk assessment and counseling section Depression screening 171 174947 Z13.31 depression screening tool administer ed, entered into emr, scored and discussed, time greater than 7.5 minutes Screening for alcohol abuse 165601618 Z13.39 Essential hypertension 29776306 I10 not well controlled Mixed hyperlipidemia 267 649113 E78.2 he is on lipitor Cholestero l is at goal Continue to work on diet and exercise as discussed Chronic pain 80715532 R5 2 Long-term current use of opiate analgesic drug 5087001106 11189 Z79.891 on going methadone Long-term drug therapy 651688953 Z79.899 Active or passive immunization 542436227 Z23 [id number] Padmini Moya MD , [facility] [address] [place] [address] [phone] 6 04/22/2021 14:28:17 04/23/2021 10:20:44 Chronic pain 21636581 R52 Long-term current use of opiate analgesic drug 7271394408 05828 Z79.891 on going methadone Benign ess ential hypertension 4945526 I10 Blood pressure close to goal. [id number] Padmini Moya MD , [facility] [address] [place] [address] 24416-018 6 07/11/2021 08:25:04 07/11/2021 09:14:46 Chronic pain 68235723 R52 Long-term current use of opiate analgesic drug 0146122475 68060 Z79.891 on going methadone , recent NL ECG Essential hypertension 37778152 I10 not well controlled Mixed hyperlipidemia 267 402683 E78.2 he is on lipitor Cholestero l is at goal Continue to work on diet and exercise as discussed Tobacco user 275638342 Z 72.0 still chewing tobacco Opioid dependence 614811 00 F11.20 cont on current meds Snoring 94460161 R06.83 [id number] Padmini Moya MD , [facility] [address] [place] [address] [phone] 6 08/20/2021 09:05:20 08/20/2021 09:59:50 Chronic pain 33987095 R52 Long-term current use of opiate analgesic drug 3202520511 89043 Z79.891 on going methadone , recent NL ECG Active or passive immunization 508199171 Z23 Shingrix Tobacco user 324904169 Z 72.0 still chewing tobacco Long-term drug therapy 876591820 Z79.899 Benign ess ential hypertension 3222565 I10 Blood pressure close to goal. [id number] Padmini Moya MD , [facility] [address] [place] [address] [phone] 6 10/29/2021 08:56:03 10/29/2021 09:40:15 Chronic pain 39128479 R52 Long-term current use of opiate analgesic drug 7148111026 95300 Z79.891 on going methadone , recent NL ECG Essential hypertension 25660672 I10 well controlled Mixed hyperlipidemia 267 918084 E78.2 he is on lipitor Cholestero l is at goal Continue to work on diet and exercise as discussed Tobacco user 132659308 Z 72.0 still chewing tobacco Long-term drug therapy 297010051 Z79.899 Active or passive immunization 002202484 Z23 Shingrix, COVID Booster Anxiety 74216128 F41.9 [id number] Padmini Moya MD , [facility] [address] [place] [address] 6 05/13/2022 10:55:52 05/13/2022 12:24:09 Adult health examination 089812051 Z00.00 see risk assesment and counseling section Depression screening 171 313837 Z13.31 depression screening tool administer ed Screening for alcohol abuse 739865145 Z13.39 Alcohol use screening tool administer ed Chronic pain 76461968 R5 2 Long-term current use of opiate analgesic drug 4127256137 88507 Z79.891 on going methadone , recent NL ECG Essential hypertension 27593457 I10 well controlled Active or passive immunization 732425601 Z23 Td: not in stockCOVID Booster: declinesFl u: Long-term current use of drug therapy 172840510 Z79.899 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 [id number] Padmini Moya MD , [facility] [address] [place] [address] 08/14/2022 11:22:48 08/14/2022 12:43:33 Chronic pain 19753003 R52 Long-term current use of opiate analgesic drug 2253377515 16697 Z79.891 on going methadone , recent NL ECG Essential hypertension 30722611 I10 well controlled Mixed hyperlipidemia 267 829536 E78.2 Cholestero l is at goal Continue to work on diet and exercise as discussed Active or passive immunization 869555430 Z23 Td:COVID Booster: out of [facility] suzan: aware at pharmacy Screening for malignant neoplasm of colon 373146216 Z12.11 Referral for a DIRECT booked colonoscop y. This patient is a healthy ASA Class 1 or 2 patient (only mild systemic disease), or a STABLE, well controlled insulin dependent diabetic. They do not have serious cardiac disease ie AL/angiopl asty within 1 year, symptomati c CHF; renal failure with CKD 4 or 5; take Coumadin, Plavix, Aggrenox, etc. Low back pain 515606739 M54.50 [id number] Padmini Moya MD , [facility] OFF[facility] [address] [place] [address] 53658-637 6 11/11/2022 07:50:38 11/12/2022 07:46:44 Chronic pain 90357994 R52 Long-term current use of opiate analgesic drug 1536620545 25086 Z79.891 on going methadone , recent NL ECG Active or passive immunization 651276565 Z23 Shingrix: aware at pharmacy Long-term current use of drug therapy 682528372 Z79.899 Low back pain 154660637 M54.50 Anxiety 93697060 F41.9 [id number] Padmini Moya MD , [facility] [address] [place] [address] 29566-842 6 02/10/2023 08:41:07 02/10/2023 09:58:41 Chronic pain 37000699 R52 Long-term current use of opiate analgesic drug 0419583539 65384 Z79.891 on going methadone , recent NL ECG Active or passive immunization 974167871 Z23 COVID Booster: aware at pharmacySh ingrix: aware at pharmacy [id number] Padmini Moya MD , [facility] [address] [place] [address] 93133-441 6 06/02/2023 09:02:44 06/03/2023 07:29:46 Adult health examination 338582346 Z00.00 see risk assesment and counseling section Depression screening 171 271671 Z13.31 depression screening tool administer ed Screening for alcohol abuse 942530480 Z13.39 Alcohol use screening tool administer ed Screening for malignant neoplasm of prostate 787294669 Z12.5 PSA testing for ages 55-69 risks and benefits discussed {{patient declines testing te st ordered}}. Chronic pain 72696460 R5 2 Long-term current use of opiate analgesic drug 2420996687 65889 Z79.891 on going methadone , recent NL ECG Advance di rective discussed with patient 485141988 Z71.89 Advanced Care Planning 1. Advanced care planning was discussed for {{less than more than*}} 15 minutes. 2. Participan ts included {{patient* patient and family pat ient's family pat ient's surrogate} } and they were given an opportunit y to decline discussion . 3. Health Care Proxy {{was* was not}} discussed. 4. Patient {{has* has not}} completed Health Care Proxy form. {{It was* It was not}} given to take home. 5. Names(s) relationsh ip(s) of Health Care Proxy: 6. MOL[facility] {{was* was not}} discussed. 7. Patient {{has* has not}} completed MOLST form. 8. Details of discussion :full code 9. Follow up needed: Long-term current use of drug therapy 903674790 Z79.899 Sleep apnea 34144337 G47 .30 Hyperlipidemia 24337287 E78.5 LDL is not well controlled Opioid dependence 819216 00 F11.20 cont on current meds Counseled by member of primary health care team 607235153 Z71.9 Today we discussed ways to reduce your 10-year cardiovasc ular disease risk. Things that decrease risk for cardiovasc ular events include eating a diet high in fiber (fruits and vegetables ) and low in simple carbohydra moises (bread, rice, pasta, alcohol, potatoes), decreasing processed foods, limiting juice and alcohol, limiting saturated fats (butter, ice cream, and cheeses), and adding regular daily activity. Having blood pressure that is <130/80. Having well controlled cholestero l (LDL and triglyceri gaviota) by eating a healthy diet and taking medication s when necessary. Managing daily stress with meditation or yoga. Depending on your other cardiovasc ular risks your practition er may recommend taking daily aspirin. [id number] Padmini Moya MD , [facility] [address] [place] [address] 08/28/2023 13:24:32 08/28/2023 14:03:43 Active or passive immunization 230642525 Z23 pneumonia- aware at [facility]: aware at pharmacy Chronic pain 77102771 R5 2 Long-term current use of opiate analgesic drug 7312101788 60098 Z79.891 on going methadone , recent NL ECG Anxiety 13234694 F41.9 Low back pain 761462989 M54.50 [id number] Padmini Moya MD , [facility] [address] [place] [address] 10357-224 6 11/24/2023 07:53:23 11/24/2023 09:11:36 Chronic pain 32208697 R52 Long-term current use of opiate analgesic drug 5660405676 02427 Z79.891 on going methadone , recent NL ECG Long-term current use of drug therapy 810510801 Z79.899 Low back pain 339607081 M54.50 [id number] Padmini Moya MD , [facility] [address] [place] [address] 03423-195 6 02/23/2024 07:51:59 02/23/2024 09:20:48 Chronic pain 99376133 R52 Long-term current use of opiate analgesic drug 7244038364 87660 Z79.891 on going methadone , recent NL ECG Active or passive immunization 091526069 Z23 Flu:pneumo [facility]anna-[facility]: aware at pharmacy Anxiety 21396958 F41.9 Benign ess ential hypertension 6206913 I10 Blood pressure close to goal. [id number] Padmini Moya MD , [facility] [address] [place] [address] 87521-969 6 06/23/2024 08:08:18 06/23/2024 14:23:30 Chronic pain 71678485 R52 Long-term current use of opiate analgesic drug 0826044244 03709 Z79.891 on going methadone , recent NL ECG Long-term current use of drug therapy 450876455 Z79.899 Anxiety 40403450 F41.9 Low back pain 910460553 M54.50 Health Concerns Section Related Observation LastModified by Organization Detai ls LastModified Time None Recorded Concern Status LastModified by Organization Details LastModified Time None Recorded Advance Directives Directive Y: given today Payers Encounter Date Sequence Insurance Name Policy Number Policy Wright Covered Member ID Wright Member ID Guarantor Name 06/02/2023 1 [place] [facility] Ernesto Sharmadorie [id number] Ernesto Nunez 06/02/2023 2 [place] [facility] Ernesto Gray Enrique Sr [id number] Ernesto Nunez 08/28/2023 1 [place] [facility] Ernesto Gray Enrique [id number] Ernesto Nunez 08/28/2023 2 [place] Ernesto Gray Enrique Sr [id number] Ernesto Nunez 11/24/2023 1 [place] [facility] Ernesto Gray Enrique [id number] Ernesto Nunez 11/24/2023 2 [place] Ernesto Gray Enrique Sr [id number] Ernesto Nunez 02/23/2024 1 [place] [facility] Ernesto Gray Enrique [id number] Ernesto Nunez 02/23/2024 2 [place] Ernesto Gray Enrique Sr [id number] Ernesto Nunez 06/23/2024 1 [place]: [facility] Ernesto Gray Enrique [id number] Ernesto Nunez 06/23/2024 2 [place] [facility] Ernesto Gray Enrique Sr [id number] Ernesto Nunez Notes Date Note Type Note Provider Name and Address Organization Details Recorded Time text/html Risk Assessment and Lifestyle Change Counseling 65+ (Medicare)Reported bypatient.Safety Risk Assessment:Has grab bars in bathroom; Has rails on steps;History of falls 1-3 in past 12 months; No evidence of abuse/neglect Functional Status:Patient does not have trouble hearing the television or radio when others do not.; Patient does not have to strain or struggle to hear/understand conversations;Patient needs help with preparing meals,transportation, shopping, taking medicines, managing finances, or other activities of daily living.; Patient does not have visual loss that interferes with daily activities; Does not live alone; Patient was not unsteady and did not take longer than 30 seconds during the timed get up and go test.; Patient reports no falls in the past 6 months.VMG HypertensionReported bypatient.Duration:ASCVD 10-year risk Context:No ischemic heart disease; No kidney disease; No history of CVA; No congestive heart failure; No history of transient ischemic attacks; No peripheral vascular disease Control:BP Goal less than (130/80); Treated with medications Compliance:Compliant with medications; Compliant with diet; Compliant with exercise Barriers to CareNo identified barriers to care Self Care:monitoring at [facility] Associated Symptoms:No chest pain; No shortness of breath; No fatigue; No palpitations; No decline in exercise capacity; No snoringaVMG-Chronic Pain 2Reported bypatient.Duration:Chroni c pain began >5years ago; Pain is stable condition; Pain is intermittent with periods of improvement and flaresof worsening pain Context:Pain was the result of accident or trauma; Pain is due to degenerative joint disease; Patient has chronic low back pain Barriers to CareNo identified barriers to care Pain impacts on functionality:Patient is capable of the following activities pain free:moderate ADL's-preparing food , eating , Location of PainLeg pain; shoulders Pain assesment in last week 0 is no pain and 10 is pain as bad as it can bePain level on average in the last week 3; Pain level at its worst in the past week 8 Providers Involved in Patient CarePatient has not had conflicts with other medical providers about the use of pain medications; Patient has signed and understands narcotic contract Ability to Manage Self CarePatient feels confident in ability to self manage condition 06/02/23-PHA He is caring for him mom a lotHe cont to struggle with his painHe will repeat lipid labsHe cont on methadone 05/13/22-PHA He is having a knee replacement next week He has stopped chewing tobacco for the past 3 weeks He has gained 15 lbs recentlyHe cont on his methadoneHis mother is req a lot of work 03/19/21- PHAlot of anxietyfamily problemsknee pain He is struggling with his son who is maybe not sober, not workingHe had shoulder surgery recently and is recoveringHe will be starting some rehab at home soon , middle of MarchHe still chews tobacco , 1 tin every 3 daysHe was doing edible MJ , not in the past monthHe does not drink EtOH 02/16/2020- Patient agreed to this visit via non-secure telehealth platform due to the COVID -19 pandemic. The nature of the non-secure technology was discussed and the patient agreed to proceed. Patient understands this is a scheduled visit and the usual procedures with regard to billing and confidentiality apply. Patient was notified that the provider location [facility] [place]: [place] During the visit the patient? s medical history and medical record were reviewed. The patient was notified to call our office for worsening or urgent symptoms. PHA He is still having knee pain Phone Call: COVID concerns Time for intake: {{1 2 3 4 5 6 7 8 9 10 11 12 13 14* 15 16 17 18 19 20 21 22 23 24 25}} minutes. 12/21/18 Wellness visit. c/o worsening arthritis pain. SD He is still having back issues Comment he continues on his usual pain medications. Continues working on His vegetable gardens. He likes to cook for his mother. They live together. Padmini Moya MD [address] [place] [address], [phone], [facility] 06/02/2023 10:27:06 4 text/html VMG HypertensionReported bypatient.Duration:ASCVD 10-year risk Context:No ischemic heart disease; No kidney disease; No history of CVA; No congestive heart failure; No history of transient ischemic attacks; No peripheral vascular disease Control:BP Goal less than (130/80); Treated with medications Compliance:Compliant with medications; Compliant with diet; Compliant with exercise Barriers to CareNo identified barriers to care Self Care:monitoring at [facility] Associated Symptoms:No chest pain; No shortness of breath; No fatigue; No palpitations; No decline in exercise capacity; No snoringaVMG-Chronic Pain 2Reported bypatient.Duration:Chroni c pain began >5years ago; Pain is stable condition; Pain is intermittent with periods of improvement and flaresof worsening pain Context:Pain was the result of accident or trauma; Pain is due to degenerative joint disease; Patient has chronic low back pain Barriers to CareNo identified barriers to care Pain impacts on functionality:Patient is capable of the following activities pain free:moderate ADL's-preparing food , eating , Location of PainLeg pain; shoulders Pain assesment in last week 0 is no pain and 10 is pain as bad as it can bePain level on average in the last week 3; Pain level at its worst in the past week 8 Providers Involved in Patient CarePatient has not had conflicts with other medical providers about the use of pain medications; Patient has signed and understands narcotic contract Ability to Manage Self CarePatient feels confident in ability to self manage condition 08/28/23follow upHe is having a rough monthLost his klonopin 06/02/23-PHA He is caring for him mom a lotHe cont to struggle with his painHe will repeat lipid labsHe cont on methadone 05/13/22-PHA He is having a knee replacement next week He has stopped chewing tobacco for the past 3 weeks He has gained 15 lbs recentlyHe cont on his methadoneHis mother is req a lot of work 03/19/21- PHAlot of anxietyfamily problemsknee pain He is struggling with his son who is maybe not sober, not workingHe had shoulder surgery recently and is recoveringHe will be starting some rehab at home soon , middle of MarchHe still chews tobacco , 1 tin every 3 daysHe was doing edible MJ , not in the past monthHe does not drink EtOH 02/16/2020- Patient agreed to this visit via non-secure telehealth platform due to the COVID -19 pandemic. The nature of the non-secure technology was discussed and the patient agreed to proceed. Patient understands this is a scheduled visit and the usual procedures with regard to billing and confidentiality apply. Patient was notified that the provider [place] [facility] [place]: [place] During the visit the patient? s medical history and medical record were reviewed. The patient was notified to call our office for worsening or urgent symptoms. PHA He is still having knee pain Phone Call: COVID concerns Time for intake: {{1 2 3 4 5 6 7 8 9 10 11 12 13 14* 15 16 17 18 19 20 21 22 23 24 25}} minutes. 12/21/18 Wellness visit. c/o worsening arthritis pain. SD He is still having back issues Comment he continues on his usual pain medications. Continues working on His vegetable gardens. He likes to cook for his mother. They live together. Padmini Moya MD [address] [place] [address], [phone], [facility] 09/01/2023 06:36:09 4 text/html VMG HypertensionReported bypatient.Duration:ASCVD 10-year risk Context:No ischemic heart disease; No kidney disease; No history of CVA; No congestive heart failure; No history of transient ischemic attacks; No peripheral vascular disease Control:BP Goal less than (130/80); Treated with medications Compliance:Compliant with medications; Compliant with diet; Compliant with exercise Barriers to CareNo identified barriers to care Self Care:monitoring at [facility] Associated Symptoms:No chest pain; No shortness of breath; No fatigue; No palpitations; No decline in exercise capacity; No snoringaVMG-Chronic Pain 2Reported bypatient.Duration:Chroni c pain began >5years ago; Pain is stable condition; Pain is intermittent with periods of improvement and flaresof worsening pain Context:Pain was the result of accident or trauma; Pain is due to degenerative joint disease; Patient has chronic low back pain Barriers to CareNo identified barriers to care Pain impacts on functionality:Patient is capable of the following activities pain free:moderate ADL's-preparing food , eating , Location of PainLeg pain; shoulders Pain assesment in last week 0 is no pain and 10 is pain as bad as it can bePain level on average in the last week 3; Pain level at its worst in the past week 8 Providers Involved in Patient CarePatient has not had conflicts with other medical providers about the use of pain medications; Patient has signed and understands narcotic contract Ability to Manage Self CarePatient feels confident in ability to self manage condition 11/24/23- He fell on his tailbone , X rays doneHe cont on his pain meds 08/28/23follow upHe is having a rough monthLost his klonopin 06/02/23-PHA He is caring for him mom a lotHe cont to struggle with his painHe will repeat lipid labsHe cont on methadone 05/13/22-PHA He is having a knee replacement next week He has stopped chewing tobacco for the past 3 weeks He has gained 15 lbs recentlyHe cont on his methadoneHis mother is req a lot of work 03/19/21- PHAlot of anxietyfamily problemsknee pain He is struggling with his son who is maybe not sober, not workingHe had shoulder surgery recently and is recoveringHe will be starting some rehab at home soon , middle of MarchHe still chews tobacco , 1 tin every 3 daysHe was doing edible MJ , not in the past monthHe does not drink EtOH 02/16/2020- Patient agreed to this visit via non-secure telehealth platform due to the COVID -19 pandemic. The nature of the non-secure technology was discussed and the patient agreed to proceed. Patient understands this is a scheduled visit and the usual procedures with regard to billing and confidentiality apply. Patient was notified that the provider location is [facility] [place]: [place] During the visit the patient? s medical history and medical record were reviewed. The patient was notified to call our office for worsening or urgent symptoms. PHA He is still having knee pain Phone Call: COVID concerns Time for intake: {{1 2 3 4 5 6 7 8 9 10 11 12 13 14* 15 16 17 18 19 20 21 22 23 24 25}} minutes. 12/21/18 Wellness visit. c/o worsening arthritis pain. SD He is still having back issues Comment he continues on his usual pain medications. Continues working on His vegetable gardens. He likes to cook for his mother. They live together. Padmini Moya MD [address] [place] [address], [phone], [facility] 11/24/2023 22:16:41 4 text/html VMG HypertensionReported bypatient.Duration:ASCVD 10-year risk Context:No ischemic heart disease; No kidney disease; No history of CVA; No congestive heart failure; No history of transient ischemic attacks; No peripheral vascular disease Control:BP Goal less than (130/80); Treated with medications Compliance:Compliant with medications; Compliant with diet; Compliant with exercise Barriers to CareNo identified barriers to care Self Care:monitoring at [facility] Associated Symptoms:No chest pain; No shortness of breath; No fatigue; No palpitations; No decline in exercise capacity; No snoringaVMG-Chronic Pain 2Reported bypatient.Duration:Chroni c pain began >5years ago; Pain is stable condition; Pain is intermittent with periods of improvement and flaresof worsening pain Context:Pain was the result of accident or trauma; Pain is due to degenerative joint disease; Patient has chronic low back pain Barriers to CareNo identified barriers to care Pain impacts on functionality:Patient is capable of the following activities pain free:moderate ADL's-preparing food , eating , Location of PainLeg pain; shoulders Pain assesment in last week 0 is no pain and 10 is pain as bad as it can bePain level on average in the last week 3; Pain level at its worst in the past week 8 Providers Involved in Patient CarePatient has not had conflicts with other medical providers about the use of pain medications; Patient has signed and understands narcotic contract Ability to Manage Self CarePatient feels confident in ability to self manage condition 02/23/24- HAving a lot of anxiety , his son had been in long term , and is now going to [place] for a sober houseHe will try adding Wellbutrin and prn klonopin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
== END 2024-07-05 14:15 | disposition home or self-care (01) ==
PROVIDERS: PCP Internal Medicine; Visit Provider Physician Assistant
DX: J06.9 Acute upper respiratory infection, unspecified (principal); Z13.9 Encounter for screening, unspecified

== ENCOUNTER 2024-07-06 08:29 | Outpatient (REF) | payer MEDICARE, MEDICAID, SELFPAY | END 2024-07-06 08:30 | disposition home or self-care (01) | LOC: HO.LAB 08:29 | PROVIDERS: Visit Provider Physician Assistant | DX: Z13.89 Encounter for screening for other disorder (principal) ==

== ENCOUNTER 2024-11-21 15:17 | Emergency (ER) | payer MEDICARE, MEDICAID, SELFPAY ==
[2024-11-21 15:20] VITALS: BMI 37.6
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
--- NOTE | 2024-11-21 16:14 | MHC.EDTECH ---
called [place] office at 1553 provided patient information and they spoke with Dr. Mina Beauchamp patient was accepted by the [facility]
--- NOTE | 2024-11-21 17:43 | PC.NURSE ---
[employer] drier attendant and [employer] detectives were present in the ED. They spoke with the family. photographed the . [employer] took custody of the clothing. The family (daughter) was given the patients cell phone and wallet prior to their departure. The pepe remained in the wallet. They have stated they will be using [employer] in [place]. The family left the ED at approx 1745.
[2024-11-22 08:47] LABS: Glucose, Whole Blood 184 mg/dL (60-115)
== END 2024-11-21 18:39 | disposition expired ==
PROVIDERS: Emergency Provider Emergency Medicine
DX: I46.9 Cardiac arrest, cause unspecified (principal); Z79.899 Other long term (current) drug therapy
CPT/HCPCS: 82947; 96374; 96375; 99283; 99285; J0168; J0618